=== PATIENT | male | born 1935 | race Caucasian/White ===

== ENCOUNTER 2017-01-28 16:20 | Inpatient (IN) | payer MEDICARE, BC ==
[~2017-01-28] VITALS: Ht 180.3 cm; Wt 76.7 kg
[2017-01-28 16:00] VITALS: BP 98/53; PULSE 100; RESP 19
[2017-01-28 17:01] LABS: ADD UMIC YES; UR ASCORBIC ACID 20 mg/dL (NEGATIVE); UR BILIRUBIN (Dip) NEGATIVE (NEGATIVE); UR BLOOD (Dip) 2+ mg/dL (NEGATIVE); UR CLARITY CLEAR (CLEAR); UR COLOR YELLOW (YELLOW); UR GLUCOSE (Dip) NEGATIVE (NEGATIVE); UR KETONES (Dip) NEGATIVE (NEGATIVE); UR LEUKOCYTE ESTERASE (Dip) NEGATIVE Leu/ul (NEGATIVE); UR MUCUS FEW /HPF (NONE SEEN); UR NITRITE (Dip) NEGATIVE (NEGATIVE); UR RBC 68 /HPF (0-5); UR SPECIFIC GRAVITY (Dip) 1.013 (1.003-1.030); UR TOTAL PROTEIN (Dip) NEGATIVE (NEGATIVE); UR UROBILINOGEN (Dip) 1+ mg/dL (NEGATIVE)
[2017-01-28] MEDS: DILTIAZEM 60 MG TAB GTB SCH (18:07)
[2017-01-28 18:15] VITALS: Ht 180.3 cm; Wt 76.7 kg
[2017-01-28] MEDS ORDERED: morphine 10 MG INJ SC PRN (18:30)
[2017-01-28] MEDS ORDERED: SCOPOLAMINE 1.5 MG PATCH TRANSDERM SCH (18:30)
[2017-01-28] MEDS: CARBIDOPA/LEVODOPA (25/100) TAB GTB SCH ×2 (18:55→20:19)
[2017-01-28 20:14] VITALS: BP 112/71; PULSE 91; RESP 18
[2017-01-28] MEDS: DOCUSATE SODIUM 10 MG/ML (10ML CUP) GTB SCH (20:17)
[2017-01-28] MEDS: NEUTRA-PHOS 250 MG PACKET GTB SCH (20:18)
[2017-01-28] MEDS: NYSTATIN 30 GM POWDER BTL TOP SCH (20:18)
[2017-01-28] MEDS: CHLORHEXIDINE GLUCONATE 15 ML UD CUP MT SCH (20:18)
[2017-01-28] MEDS: APIXABAN 5 MG TABLET GTB SCH (20:19)
[2017-01-28] MEDS: SENNA TAB GTB SCH (20:20)
[2017-01-28] MEDS: DOXAZOSIN 2 MG TAB GTB SCH (20:20)
[2017-01-28] MEDS: ALBUTEROL/IPRATROPIUM (NEB) 3 ML AMP HHN SCH (20:40)
[2017-01-29] MEDS: DILTIAZEM 60 MG TAB GTB SCH ×4 (00:36→18:00)
[2017-01-29] MEDS: ALBUTEROL/IPRATROPIUM (NEB) 3 ML AMP HHN SCH ×4 (02:21→20:26)
[2017-01-29 06:22] LABS: EOSINOPHILS % 0.4 % (0.0-7.0); HEMATOCRIT 30.9 % (42.0-52.0); HEMOGLOBIN 9.5 g/dl (14.0-18.0); LYMPHOCYTES # 1.4 10^3/ul (0.8-2.9); LYMPHOCYTES % 15.3 % (15.0-51.0); MEAN CORPUSCULAR HEMOGLOBIN 28.2 pg (29.0-33.0); MEAN CORPUSCULAR HGB CONC 30.7 g/dl (32.0-37.0); MEAN CORPUSCULAR VOLUME 91.7 fl (82.0-101.0); MEAN PLATELET VOLUME 10.5 fl (7.4-10.4); MONOCYTES % 10.7 % (0.0-11.0); NEUTROPHIL # 6.6 10^3/ul (1.6-7.5); NEUTROPHILS % 70.9 % (39.0-77.0); NUCLEATED RED BLOOD CELLS% 0.3 /100WBC (0.0-0.0); PLATELET COUNT 218 10^3/UL (140-415); RED BLOOD COUNT 3.37 10^6/ul (4.70-6.10); WHITE BLOOD COUNT 9.3 10^3/ul (4.8-10.8)
[2017-01-29 06:53] LABS: ALBUMIN 2.2 g/dl (3.3-4.9); ALBUMIN/GLOBULIN RATIO 1.1; BILIRUBIN,INDIRECT 0.1 mg/dl (0-1.1); BILIRUBIN,TOTAL 0.1 mg/dl (0.2-1.3); CALCIUM 7.4 mg/dl (8.4-10.2); CREATININE 0.79 mg/dl (0.61-1.24); POTASSIUM 4.3 mmol/L (3.5-5.1); TOTAL PROTEIN 4.2 g/dl (6.1-8.1)
[2017-01-29] MEDS: CARBIDOPA/LEVODOPA (25/100) TAB GTB SCH ×6 (07:09→21:00)
[2017-01-29 08:00] VITALS: BP 112/60; PULSE 68; RESP 21
[2017-01-29] MEDS: DOCUSATE SODIUM 10 MG/ML (10ML CUP) GTB SCH ×2 (09:26→21:03)
[2017-01-29] MEDS: CHLORHEXIDINE GLUCONATE 15 ML UD CUP MT SCH ×2 (09:26→21:04)
[2017-01-29] MEDS: PSYLLIUM 28% PACKET GTB SCH (09:28)
[2017-01-29] MEDS: SCOPOLAMINE 1.5 MG PATCH TRANSDERM SCH (09:28)
[2017-01-29] MEDS: NEUTRA-PHOS 250 MG PACKET GTB SCH ×2 (09:28→21:03)
[2017-01-29] MEDS: FAMOTIDINE 20 MG TAB GTB SCH (09:28)
[2017-01-29] MEDS: predniSONE 20 MG TAB GTB SCH (09:29)
[2017-01-29] MEDS: RASAGILINE MESYLATE 1 MG TAB GTB SCH (09:29)
[2017-01-29] MEDS: APIXABAN 5 MG TABLET GTB SCH ×2 (09:29→21:03)
[2017-01-29] MEDS: SENNA TAB GTB SCH ×2 (09:29→21:03)
[2017-01-29] MEDS: NYSTATIN 30 GM POWDER BTL TOP SCH ×2 (09:30→21:04)
[2017-01-29] MEDS: DIGOXIN 0.125 MG TAB GTB SCH (13:04)
[2017-01-29] MEDS ORDERED: LEVALBUTEROL (NEB) 0.63 MG/3 ML AMP HHN PRN (14:00)
--- NOTE | 2017-01-29 14:06 | CONS ---
DATE OF ADMISSION: 01/28/2017 DATE OF CONSULTATION: 01/29/2017 TYPE OF CONSULTATION: Rehabilitation post-admission physician evaluation. REHABILITATION IMPAIRMENT CATEGORY: Parkinson disease. ACTIVE COMORBIDITIES: 1. Debility secondary to perforated diverticulitis and respiratory failure. 2. Trach. 3. Dysphagia with G-tube placement. 4. Hypertension. 5. BPH. 6. Peripheral neuropathy. 7. Urinary retention. 8. Atrial fibrillation. 9. Impairments in self-care and mobility. HISTORY OF PRESENT ILLNESS: The patient is a very pleasant 81-year-old gentleman with a history of multiple medical comorbidities including Parkinson disease who was initially hospitalized in November for perforated diverticulitis. The patient underwent surgery and his hospital course was notable fo r pneumonia and respiratory failure requiring intubation and ventilatory support. The patient's hos pital course was also notable for significant dysphagia requiring PEG placement. Hospital course no table for urinary retention. The patient currently with a Cano. The patient was eventually transf erred to [facility]. The patient was noted to have with worsening of Parkinson's s ymptoms during his time off of Sinemet. Patient's overall status has improved in [place] and he has been tolerating capping of the trach. The patient has now been cleared [facility] interdisciplinary rehab care. FUNCTIONAL HISTORY: Prior to recent events, he was independent in self-care tasks and mobility. Cu rrently, the patient requires moderate assist to maximal assist for self-care activities and maximal assist for mobility tasks. I have reviewed the preadmission screen and the patient's current functional status is consistent wi th the preadmission screen. SOCIAL HISTORY: The patient lives at home with his and hopes to return there upon discharge. PAST MEDICAL HISTORY: 1. Parkinson disease. 2. Hypertension. 3. BPH. 4. Hypothyroidism. 5. Peripheral neuropathy. 6. Atrial fibrillation. CURRENT MEDICATIONS: 1. Sinemet 25/100 two tabs per G-tube at bedtime. 2. Ativan 2 mg per G-tube q.12h. p.r.n. 3. Prednisone 20 mg daily. 4. Morphine p.r.n. 5. Metamucil daily. 6. Azilect 1 mg daily. 7. Scopolamine patch q.72 h.. 8. Senna 1 tab b.i.d. 9. Neutra-Phos 250 b.i.d. 10. Albuterol nebulizer. 11. Eliquis 5 mg b.i.d. 12. Digoxin 0.125 mg daily. 13. Cardizem 60 mg q.6h. 14. Colace 100 mg b.i.d. 15. Cardura 2 mg daily. 16. Pepcid 20 mg daily. 17. Sinemet 2 tabs at 7 a.m., 10 a.m., 1300, 1600 and 1900. ALLERGIES: 1. TETRACYCLINE 2. PENICILLIN. 3. FLAGYL. PHYSICAL EXAMINATION: VITAL SIGNS: He is currently afebrile with stable vital signs. HEENT: The extraocular motions appear intact. The patient does have a capped trach in place. LUNGS: Reveal coarse breath sounds. CARDIAC: S1, S2. ABDOMEN: Soft, nontender, positive bowel sounds. G-tube in place. NEUROLOGIC: He is awake and alert. He is oriented x3. He will follow simple 1-step commands. He demonstrates antigravity strength in bilateral upper extremity and lower extremity. He does have im paired static and dynamic balance. PLAN: The patient has been admitted for comprehensive interdisciplinary acute rehab and is anticipa viraj to tolerate 3 hours of daily therapy in divided doses for at least 5/7 days a week. The treatme nt plan will include: 1. Physical therapy to focus on bed mobility, transfers, and household ambulation with the goal of having the patient reach a standby assist level. 2. Occupational therapy to focus on hygiene, grooming, dressing, bathing, and toileting activities with the goal of having the patient reach standby assist level. 3. Speech therapy for dysphagia management, in addition to full cognitive assessment with the goal of having the patient return to baseline cognition and transitioned to oral feedings. 4. Rehabilitation nursing for carryover of therapeutic interventions, with the goal of continent of bowel and bladder, and the goal of patient and family education with regard to the aforementioned i ssues. REHABILITATION BARRIER: Trach INTERVENTION FOR BARRIER: Respiratory care. ESTIMATED LENGTH OF STAY: 14 days. DISPOSITION GOAL: Home. I acknowledge that I performed a full physical examination on this patient within 24 hours of admiss ion to the rehabilitation unit. I believe the patient is a good candidate for comprehensive interdi sciplinary rehab care and is anticipated to make reasonable goals in a reasonable period of time as outlined above. Dictated By: TIANA COSTA/NTS Conf#: [id number] [facility]#: [id number]
--- NOTE | 2017-01-29 14:22 | CONS ---
Date/Time of Note Date/Time of Note DATE: 01/29/17 TIME: 13:59 Assessment/Plan Assessment/Plan Chief Complaint/Hosp Course 81-year-old male with history of vent dependent respiratory failure, who was transferred from [facility] to [facility] for pulmonary debility. 1. Pulmonary debility. -Continue with rehabilitation. -Continue with Pulmonary toileting. Follow-up with pulmonary recommendations. 2. Status post respiratory failure, requiring insertion of tracheostomy and is now capped. Stable saturation on room air. -Follow-up with pulmonary recommendation regarding tracheostomy management. 3. Dysphagia, requiring G-tube. -Continue tube feeding as tolerated. -Continue with local G-tube care. 4. History of perforated diverticulitis. -Status post explore lap with partial colectomy and colostomy placement. -Colostomy care per nursing/ostomy nurse 5. Atrial fibrillation. -On Cardizem/Dig and Eliquis for anticoagulation 6. BPH with urinary retention. -On doxazosin. As per urology, will attempt Cano removal sometimes later and if patient cannot void, plan is in and out catheterization. 7. Reported Hypothyroidism. Not on treatment. - Obtain a TSH/T4 level and treat as indicated. 8. Parkinson's disease. -Continue home medications -Supportive care 9. Peripheral neuropathy. -Continue home medications 10. Anemia, chronic versus iron deficiency. -Obtain iron panel and treat accordingly. H&H stable. 11. Hyponatremia, Asymptomatic.likely dilutional. -Free water restriction 1L/day. -Obtain urine studies. 12.Essential HTN. Stable. -Continue antihypertensives. Prophylaxis: Eliquis/Pepcid. Approximately 60 minutes was spent on this consultation. Patient was seen in collaboration with Dr. Estrada. Problems: Consultation Date/Type/Reason Admit Date/Time Jan 28, 2017 at 16:20 Hx of Present Illness This is a very unfortunate 81-year-old male with extensive past medical history of alcohol abuse, nicotine abuse, Parkinson disease, hypothyroidism, peripheral neuropathy, basal cell carcinoma of the skin, atrial fibrillation, hypertension, BPH, arthritis, leg fractures, and kyphoplasty of thoracic spine who [facility] for pulmonary debility. Apparently, he was admitted in [facility] in November for perforated diverticulitis for which he had undergone explore lap with partial colectomy with Sariah procedure. His hospitalization was complicated with respiratory failure requiring insertion of tracheostomy and G-tube placement. He was then transferred to [facility] for vent weaning . At [place], patient was successfully weaned off from the ventilator. At that time, attempt was done to decannulate trach, however it needed reinsertion and was kept capped. Patient also had urinary retention requiring urology work-up at [facility] and kept with Cano. Patient continued to have impairment in self care with pulmonary debility was accepted to [facility] for complex interdisciplinary rehabilitation. Patient currently denies chest pain, shortness of breath, nausea, vomiting, abdominal pain, headache, numbness, bleeding episodes or urinary symptoms.His labs unremarkable except for low HH 9.5/30.9 and sodium 131. VSS. A 12 point review of system was assessed and is negative other than what is mentioned in HPI. Past Medical History See HPI Past Surgical History See HPI Social History Patient had a history of alcohol abuse, nicotine abuse. He denies any illicit drug use history. Smoking Status: Former smoker Exam/Review of Systems Vital Signs Vitals Vital Signs Date Time Temp Pulse Resp B/P Pulse Ox O2 Delivery O2 Flow Rate FiO2 01/29/17 09:08 82 17 97 21 01/28/17 20:14 98.1 112/71 Room Air Intake and Output 01/28/17 01/28/17 01/29/17 15:00 23:00 07:00 Intake Total 120 ml Balance 120 ml Exam General: Elderly, chronically ill looking male, not in any acute distress . HEENT: Normocephalic, Atraumatic, No laceration or hematoma; Eyes: PEERL, Conjunctiva clear, Anicteric sclera Neck: Supple without any lymphadenopathy, nontender, no JVD, no carotid bruits, trachea midline, no thyromegaly Cardiac: S1, S2 auscultated, regular rhythm and rate, no mumurs or gallop Pulmonary: With capped tracheostomy. Mild wheezing bilateral upper lobes on expiration. Normal respiratory effort. GI: With G-tube, mild redness around the site. Soft, non tender, non- distended, no masses, no rebound tenderness or guarding. Bowel sounds active on all four quadrants Genitourinary: Deferred Extremities: No cyanosis, clubbing, or edema. Pulses [2+] bilaterally. Full ROM on all four extremities. No focal weakness appreciated. Neurologic: Alert to person, place, time, and situation. Affect appropriate, intact sensation. Skin: Clean,dry, and intact. No ecchymosis, no rashes, or lesions Results Result Diagram: 01/29/17 0611 01/29/17 0611 Results 24 hrs Laboratory Tests Test 01/28/17 16:30 01/29/17 06:11 Urine Color YELLOW Urine Clarity CLEAR Urine pH 7.0 Urine Specific Herscher 1.013 Urine Ketones NEGATIVE Urine Nitrite NEGATIVE Urine Bilirubin NEGATIVE Urine Urobilinogen 1+ H Urine Leukocyte Esterase NEGATIVE Urine Microscopic RBC 68 H Urine Microscopic WBC 6 H Urine Mucus FEW A Urine Hemoglobin 2+ H Urine Glucose NEGATIVE Urine Total Protein NEGATIVE White Blood Count 9.3 Red Blood Count 3.37 L Hemoglobin 9.5 L Hematocrit 30.9 L Mean Corpuscular Volume 91.7 Mean Corpuscular Hemoglobin 28.2 L Mean Corpuscular Hemoglobin Concent 30.7 L Red Cell Distribution Width 19.0 H Platelet Count 218 Mean Platelet Volume 10.5 H Neutrophils % 70.9 Lymphocytes % 15.3 Monocytes % 10.7 Eosinophils % 0.4 Basophils % 0.0 Nucleated Red Blood Cells % 0.3 H Neutrophils # 6.6 Lymphocytes # 1.4 Monocytes # 1.0 H Eosinophils # 0.0 Basophils # 0.0 Nucleated Red Blood Cells # 0.0 Sodium Level 131 L Potassium Level 4.3 Chloride Level 99 Carbon Dioxide Level 30 Anion Gap 6 L Blood Urea Nitrogen 33 H Creatinine 0.79 Glucose Level 102 Calcium Level 7.4 L Total Bilirubin 0.1 L Direct Bilirubin 0.00 Indirect Bilirubin 0.1 Aspartate Amino Transf (AST/SGOT) 13 L Alanine Aminotransferase (ALT/SGPT) 37 Alkaline Phosphatase 46 Total Protein 4.2 L Albumin 2.2 L Globulin 2.00 Albumin/Globulin Ratio 1.10 Medications Medications Current Medications Carbidopa/Levodopa (Sinemet (25/ 100)) 2 tab QHS GTB Last administered on 20:19; Admin Dose 2 TAB; Start 01/28/17 at 21:00 Lorazepam (Ativan) 2 mg Q12H PRN GTB ANXIETY; Start 01/28/17 at 18:00 Prednisone (Prednisone) 20 mg DAILY GTB Last administered on 01/29/17 09:29; Admin Dose 20 MG; Start 01/29/17 at 09:00 Morphine Sulfate (morphine) 2 mg Q4H PRN SC PAIN; Start 01/28/17 at 18:30 Nystatin (Nystatin Powder) 1 applic BID TOP Last administered on 01/29/17 09: 30; Admin Dose 1 APPLIC; Start 01/28/17 at 21:00 Psyllium Hydrophilic Mucilloid (Metamucil) 2 pkt DAILY GTB Last administered on 01/29/17 09:28; Admin Dose 2 PKT; Start 01/29/17 at 09:00 Rasagiline (Azilect) 1 mg DAILY GTB Last administered on 01/29/17 09:29; Admin Dose 1 MG; Start 01/29/17 at 09:00 Senna (Senokot) 1 tab BID GTB Last administered on 01/29/17 09:29; Admin Dose 1 TAB; Start 01/28/17 at 21:00 Sodium Phosphate (Neutra-Phos) 250 mg BID GTB Last administered on 01/29/17 09 :28; Admin Dose 250 MG; Start 01/28/17 at 21:00 Apixaban (Eliquis) 5 mg BID GTB Last administered on 01/29/17 09:29; Admin Dose 5 MG; Start 01/28/17 at 21:00 Chlorhexidine Gluconate (Peridex) 15 ml Q12 MT Last administered on 01/29/17 09:26; Admin Dose 15 ML; Start 01/28/17 at 21:00 Digoxin (Digoxin) 0.125 mg DAILY@13 GTB Last administered on 01/29/17 13:04; Admin Dose 0.125 MG; Start 01/29/17 at 13:00 Diltiazem HCl (Cardizem) 60 mg Q6 GTB Last administered on 01/29/17 13:04; Admin Dose 60 MG; Start 01/28/17 at 18:07 Docusate Sodium (Colace Liquid Cup) 100 mg BID GTB Last administered on 09:26; Admin Dose 100 MG; Start 01/28/17 at 21:00 Doxazosin Mesylate (Cardura) 2 mg DAILY@21 GTB Last administered on 01/28/17 20:20; Admin Dose 2 MG; Start 01/28/17 at 21:00 Famotidine (Pepcid) 20 mg DAILY GTB Last administered on 01/29/17 09:28; Admin Dose 20 MG; Start 01/29/17 at 09:00 Carbidopa/Levodopa (Sinemet (25/ 100)) 2 tab 07,10,13,16,19 GTB Last administered on 01/29/17 13:04; Admin Dose 2 TAB; Start 01/28/17 at 19:00 Scopolamine (Transderm-Scop) 1 patch Q72H TRANSDERM Last administered on 09:28; Admin Dose 1 PATCH; Start 01/29/17 at 09:00 ALEX BURR NP Jan 29, 2017 14:09
[2017-01-29] MEDS ORDERED: SOD CHLORIDE 0.9% 1,000 ML IV SCH (14:30)
--- NOTE | 2017-01-29 16:44 | CONS ---
DATE OF ADMISSION: 01/28/2017 DATE OF CONSULTATION: PRIMARY FAMILY LAW MEDIATOR: Thank you, Dr. Estrada, for this consultation. HISTORY OF PRESENT ILLNESS: This is a pleasant 81-year-old gentleman with multiple medical problems, including Parkinson's disease, complicated by recent perforated diverticulitis which resulted in hypoxemic and hypercapnic respiratory failure requiring tracheostomy and PEG tube placement. The patient was transferred to [facility] where he continued care, since that time has had tracheostomy capped. Per patient, he was decannulated at one point, however, because of respiratory distress tracheostomy was replaced. Currently he has trach capped, is comfortable at rest. No respiratory distress at present. PAST MEDICAL HISTORY: Parkinson disease, BPH, essential hypertension, hypothyroidism and peripheral neuropathy. MEDICATION: Per chart. ALLERGIES: TETRACYCLINE, AND FLAGYL. SOCIAL HISTORY: Nonsmoker. No alcohol. No history of drug use. FAMILY HISTORY: Noncontributory. REVIEW OF SYSTEMS: A 12-point review of systems negative other than that mentioned above. PHYSICAL EXAMINATION: On examination, elderly. PHYSICAL EXAMINATION: GENERAL: A well-nourished, well-developed gentleman comfortable at rest. No acute distress. VITAL SIGNS: Currently afebrile. Pulse is 80, blood pressure 112/78, O2 saturation 96 percent on room air. NECK: Trach site is clean and intact, capped. CARDIAC: S1, S2. No added sounds or murmurs. CHEST: Diminished air entry bilaterally. ABDOMEN: Soft, nontender. No guarding or rebound. EXTREMITIES: No cyanosis, clubbing, edema. NEUROLOGICALLY: Generalized weakness. LABORATORY: White count 9.3, hemoglobin 9.5, platelets of 218. BUN 33, creatinine 0.79. ABGs pending at time of this dictation. IMPRESSION: 1. Status post hypoxemic respiratory failure now with tracheostomy capped. 2. Recent perforated diverticulitis. 3. History of underlying Parkinson's disease. PLAN: 1. Continue PT, OT. 2. Continue cardiac recommendations. 3. Continue anticoagulation for atrial fibrillation. 4. Continue tracheostomy capping. Will continue to monitor and as he gets stronger will reassess for decannulation. Dictated By: Ricky Paul MD /chacha/david /Document#: [id number]
--- NOTE | 2017-01-29 17:55 | CONS ---
Date/Time of Note Date/Time of Note DATE: 01/29/17 TIME: 17:53 Assessment/Plan Assessment/Plan Additional Assessment/Plan Atrial fibrillation on A/C Preserved EF Respiratory Failure -cont CCB, digoxin as BP tolerates and titrate as needed for HR. Cont a/c if no contraindication. Consultation Date/Type/Reason Admit Date/Time Jan 28, 2017 at 16:20 Initial Consult Date Type of Consultation: cv 24 HR Interval Summary Free Text/Dictation pt seen and examined, no new CV issues as per nursing staff Exam/Review of Systems Vital Signs Vitals Vital Signs Date Time Temp Pulse Resp B/P Pulse Ox O2 Delivery O2 Flow Rate FiO2 01/29/17 14:44 86 17 97 21 01/28/17 20:14 98.1 112/71 Room Air Intake and Output 01/28/17 01/28/17 01/29/17 15:00 23:00 07:00 Intake Total 120 ml Balance 120 ml Exam sleeping, nad Head: normocephalic Neck: other (trach) Respiratory: other (course bs, no wheeze) Cardiovascular: irregular rhythm, other (s1s2) Gastrointestinal: bowel sounds, non-tender, soft Extremities: edema (trace) Results Result Diagram: 01/29/17 0611 01/29/17 0611 Results 24 hrs Laboratory Tests Test 01/29/17 06:11 01/29/17 17:00 White Blood Count 9.3 Red Blood Count 3.37 L Hemoglobin 9.5 L Hematocrit 30.9 L Mean Corpuscular Volume 91.7 Mean Corpuscular Hemoglobin 28.2 L Mean Corpuscular Hemoglobin Concent 30.7 L Red Cell Distribution Width 19.0 H Platelet Count 218 Mean Platelet Volume 10.5 H Neutrophils % 70.9 Lymphocytes % 15.3 Monocytes % 10.7 Eosinophils % 0.4 Basophils % 0.0 Nucleated Red Blood Cells % 0.3 H Neutrophils # 6.6 Lymphocytes # 1.4 Monocytes # 1.0 H Eosinophils # 0.0 Basophils # 0.0 Nucleated Red Blood Cells # 0.0 Sodium Level 131 L Potassium Level 4.3 Chloride Level 99 Carbon Dioxide Level 30 Anion Gap 6 L Blood Urea Nitrogen 33 H Creatinine 0.79 Glucose Level 102 Calcium Level 7.4 L Total Bilirubin 0.1 L Direct Bilirubin 0.00 Indirect Bilirubin 0.1 Aspartate Amino Transf (AST/SGOT) 13 L Alanine Aminotransferase (ALT/SGPT) 37 Alkaline Phosphatase 46 Total Protein 4.2 L Albumin 2.2 L Globulin 2.00 Albumin/Globulin Ratio 1.10 Urine Osmolality < 12 L Medications Medications Current Medications Carbidopa/Levodopa (Sinemet (25/ 100)) 2 tab QHS GTB Last administered on 20:19; Admin Dose 2 TAB; Start 01/28/17 at 21:00 Lorazepam (Ativan) 2 mg Q12H PRN GTB ANXIETY; Start 01/28/17 at 18:00 Prednisone (Prednisone) 20 mg DAILY GTB Last administered on 01/29/17 09:29; Admin Dose 20 MG; Start 01/29/17 at 09:00 Morphine Sulfate (morphine) 2 mg Q4H PRN SC PAIN; Start 01/28/17 at 18:30 Nystatin (Nystatin Powder) 1 applic BID TOP Last administered on 01/29/17 09: 30; Admin Dose 1 APPLIC; Start 01/28/17 at 21:00 Psyllium Hydrophilic Mucilloid (Metamucil) 2 pkt DAILY GTB Last administered on 01/29/17 09:28; Admin Dose 2 PKT; Start 01/29/17 at 09:00 Rasagiline (Azilect) 1 mg DAILY GTB Last administered on 01/29/17 09:29; Admin Dose 1 MG; Start 01/29/17 at 09:00 Senna (Senokot) 1 tab BID GTB Last administered on 01/29/17 09:29; Admin Dose 1 TAB; Start 01/28/17 at 21:00 Sodium Phosphate (Neutra-Phos) 250 mg BID GTB Last administered on 01/29/17 09 :28; Admin Dose 250 MG; Start 01/28/17 at 21:00 Apixaban (Eliquis) 5 mg BID GTB Last administered on 01/29/17 09:29; Admin Dose 5 MG; Start 01/28/17 at 21:00 Chlorhexidine Gluconate (Peridex) 15 ml Q12 MT Last administered on 01/29/17 09:26; Admin Dose 15 ML; Start 01/28/17 at 21:00 Digoxin (Digoxin) 0.125 mg DAILY@13 GTB Last administered on 01/29/17 13:04; Admin Dose 0.125 MG; Start 01/29/17 at 13:00 Diltiazem HCl (Cardizem) 60 mg Q6 GTB Last administered on 01/29/17 13:04; Admin Dose 60 MG; Start 01/28/17 at 18:07 Docusate Sodium (Colace Liquid Cup) 100 mg BID GTB Last administered on 09:26; Admin Dose 100 MG; Start 01/28/17 at 21:00 Doxazosin Mesylate (Cardura) 2 mg DAILY@21 GTB Last administered on 01/28/17 20:20; Admin Dose 2 MG; Start 01/28/17 at 21:00 Famotidine (Pepcid) 20 mg DAILY GTB Last administered on 01/29/17 09:28; Admin Dose 20 MG; Start 01/29/17 at 09:00 Carbidopa/Levodopa (Sinemet (25/ 100)) 2 tab 07,10,13,16,19 GTB Last administered on 01/29/17 13:04; Admin Dose 2 TAB; Start 01/28/17 at 19:00 Scopolamine (Transderm-Scop) 1 patch Q72H TRANSDERM Last administered on 09:28; Admin Dose 1 PATCH; Start 01/29/17 at 09:00 Holden Reeves DO Jan 29, 2017 17:55
[2017-01-29 20:00] VITALS: BP 116/74; PULSE 66; RESP 18
[2017-01-29] MEDS: LORAZEPAM 1 MG TAB GTB PRN (21:03)
[2017-01-29] MEDS: DOXAZOSIN 2 MG TAB GTB SCH (21:03)
[2017-01-29 21:59] VITALS: BP 102/69; RESP 18
[2017-01-30] VITALS (7 sets, daily range): BP systolic 85–129; BP diastolic 51–74; PULSE 86–97; RESP 18
[2017-01-30] MEDS: DILTIAZEM 60 MG TAB GTB SCH ×4 (01:01→17:31)
[2017-01-30] MEDS: ALBUTEROL/IPRATROPIUM (NEB) 3 ML AMP HHN SCH ×4 (02:00→19:35)
--- NOTE | 2017-01-30 04:56 | CONS ---
DATE OF ADMISSION: 01/28/2017 DATE OF CONSULTATION: 01/29/2017 TYPE OF CONSULTATION: Psychological. REFERRING PHYSICIAN: Tiana Velez MD CONSULTING PSYCHOLOGIST: Juan Miguel Wall, PhD REASON FOR CONSULTATION: This consultation was requested by Dr. Elver Velez in order to evaluate the cognitive and emotional functioning of this patient related to his present medical condition. HISTORY OF PRESENT ILLNESS: The patient is an 81-year-old male. The patient was initially in [facility] with a diagnosis of pulmonary debility. The patient does have Parkinson disease and numerous other medical problems. The patient is motivated to get better and does feel frustrated by all his medical problems. The patient did have a trach placed and he had very soft speech when talking during the interview. The patient is frustrated about all his medical problems, but is motivated to try to return to his previous level of functioning. The patient reports that he does have a Master's Degree in Psychology. FAMILY AND SOCIAL HISTORY: The patient reports that he lives in a house in [place] with his . The patient's house [address] [facility] [facility] [facility] and does have numerous stairs. The patient does want to return there after discharge. MEDICATIONS: The patient is currently on Ativan 2 mg q.12 hours p.r.n. SUBSTANCE USE: The patient reports that he does not smoke. The patient reports that he drinks 1 to 2 glasses of red wine per day with dinner. MENTAL STATUS EXAMINATION: APPEARANCE: The patient was seen in bed. He appears to be of average height and weight. The patient is balding and has smith hair with a dalton and mustache. The patient wears glasses and is right-handed. The patient did have a trach placed in. BEHAVIOR: The patient was cooperative during the consultation. The patient did attempt to answer all questions presented to him by the interviewer. The patient did have some difficulty in speaking, but tried to do as well as he could. He spoke very softly, but tried to make himself understood. MOOD AND AFFECT: The patient's mood appears to be somewhat depressed. Affect does appear to be anxious. PERCEPTION: The patient reports no hallucinations or delusions. The patient was alert to person, place, situation and time. MEMORY: The patient's memory is basically intact. The patient did have some slight gaps in his memory, which might relate to his Parkinson's, as well as his recent medical problems. The patient was able to say the name of the hospital as "," but did not say [facility]. He did know it was 01/2017. The patient was able to say who the governor of the [facility] is and the mayor of the [facility], but actually could not come up with the name of the ethnographer. He could do 1 serial 7 subtraction from 100, but then could not go any further. The patient was able to spell "world" backwards. Overall, given his age and illnesses, his overall cognitive functioning appears to be adequate. INTELLIGENCE: Appears to fall in the average range. INSIGHT: Fair. JUDGMENT: Fair. THOUGHT CONTENT: The patient is concerned about his present medical condition. The patient is frustrated about all his medical problems and does want to be able to return to his previous level of functioning. DISCUSSION: The patient can likely benefit from some cognitive/behavioral psychotherapy while he is on the unit. Psychotherapy would focus on his underlying level of anxiety and frustration about all his medical problems. DIAGNOSTIC IMPRESSION: F06.31, mood disorder due to multiple medical problems with depressive features. Thank you very much, Dr. Elver Velez, for referring this individual. Please do not hesitate to call if you have additional questions. Dictated By: JUAN MIGUEL WALL PHD PEDRO/BERTHA Conf#: [id number] DID#: [id number] CC: TIANA VELEZ MD;*EndCC* MTDD
[2017-01-30] MEDS: CARBIDOPA/LEVODOPA (25/100) TAB GTB SCH ×6 (06:08→20:25)
[2017-01-30 07:49] LABS: IRON 24 ug/dl (35-150)
[2017-01-30 07:59] LABS: TOTAL IRON BINDING CAPACITY 240 ug/dl (241-421)
[2017-01-30 08:07] LABS: CALCIUM 7.3 mg/dl (8.4-10.2); CHOL/HDL RATIO 2.9 RATIO; CREATININE 0.79 mg/dl (0.61-1.24); MAGNESIUM 2.2 mg/dl (1.7-2.5); POTASSIUM 4.2 mmol/L (3.5-5.1)
--- NOTE | 2017-01-30 08:09 | CONS ---
Date/Time of Note Date/Time of Note DATE: 01/30/17 TIME: 08:07 Assessment/Plan Assessment/Plan Chief Complaint/Hosp Course Atrial fibrillation on A/C Preserved EF Respiratory Failure Problems: Additional Assessment/Plan no change in current mds continue Dig and cardizem continue ac if no signs of bleeding Consultation Date/Type/Reason Admit Date/Time Jan 28, 2017 at 16:20 Initial Consult Date Type of Consultation: cv 24 HR Interval Summary Free Text/Dictation no chest pain, no sob, no palpitations Detailed Summary Respiratory: no complaints Cardiovascular: no complaints Gastrointestinal: no complaints Musculoskeletal: no complaints Skin: no complaints Neurologic: no complaints Endocrine: no complaints Lymphatic: no complaints Exam/Review of Systems Vital Signs Vitals Vital Signs Date Time Temp Pulse Resp B/P Pulse Ox O2 Delivery O2 Flow Rate FiO2 01/30/17 02:00 97.6 66 18 116/74 94 01/29/17 20:27 21 01/29/17 20:00 Room Air Intake and Output 01/29/17 01/29/17 01/30/17 15:00 23:00 07:00 Intake Total 1240 ml 1000 ml Output Total 800 ml 700 ml 800 ml Balance -800 ml 540 ml 200 ml Exam Constitutional: frail Head: atraumatic, normocephalic ENMT: nl external ears & nose Neck: supple Respiratory: clear to auscultation Cardiovascular: irregular rhythm Gastrointestinal: soft Musculoskeletal: nl extremities to inspection Extremities: normal pulses Results Result Diagram: 01/29/17 0611 01/29/17 0611 Results 24 hrs Laboratory Tests Test 01/29/17 17:00 01/30/17 06:33 Urine Osmolality < 12 L Urine Random Sodium Iron Level 24 L Total Iron Binding Capacity 240 L Percent Iron Saturation 10 L Medications Medications Current Medications Carbidopa/Levodopa (Sinemet (25/ 100)) 2 tab QHS GTB Last administered on 20:19; Admin Dose 2 TAB; Start 01/28/17 at 21:00 Lorazepam (Ativan) 2 mg Q12H PRN GTB ANXIETY Last administered on 01/29/17 21: 03; Admin Dose 2 MG; Start 01/28/17 at 18:00 Prednisone (Prednisone) 20 mg DAILY GTB Last administered on 01/29/17 09:29; Admin Dose 20 MG; Start 01/29/17 at 09:00 Morphine Sulfate (morphine) 2 mg Q4H PRN SC PAIN; Start 01/28/17 at 18:30 Nystatin (Nystatin Powder) 1 applic BID TOP Last administered on 01/29/17 21: 04; Admin Dose 1 APPLIC; Start 01/28/17 at 21:00 Psyllium Hydrophilic Mucilloid (Metamucil) 2 pkt DAILY GTB Last administered on 01/29/17 09:28; Admin Dose 2 PKT; Start 01/29/17 at 09:00 Rasagiline (Azilect) 1 mg DAILY GTB Last administered on 01/29/17 09:29; Admin Dose 1 MG; Start 01/29/17 at 09:00 Senna (Senokot) 1 tab BID GTB Last administered on 01/29/17 21:03; Admin Dose 1 TAB; Start 01/28/17 at 21:00 Sodium Phosphate (Neutra-Phos) 250 mg BID GTB Last administered on 01/29/17 21 :03; Admin Dose 250 MG; Start 01/28/17 at 21:00 Apixaban (Eliquis) 5 mg BID GTB Last administered on 01/29/17 21:03; Admin Dose 5 MG; Start 01/28/17 at 21:00 Chlorhexidine Gluconate (Peridex) 15 ml Q12 MT Last administered on 01/29/17 21:04; Admin Dose 15 ML; Start 01/28/17 at 21:00 Digoxin (Digoxin) 0.125 mg DAILY@13 GTB Last administered on 01/29/17 13:04; Admin Dose 0.125 MG; Start 01/29/17 at 13:00 Diltiazem HCl (Cardizem) 60 mg Q6 GTB Last administered on 01/30/17 06:06; Admin Dose 60 MG; Start 01/28/17 at 18:07 Docusate Sodium (Colace Liquid Cup) 100 mg BID GTB Last administered on 21:03; Admin Dose 100 MG; Start 01/28/17 at 21:00 Doxazosin Mesylate (Cardura) 2 mg DAILY@21 GTB Last administered on 01/29/17 21:03; Admin Dose 2 MG; Start 01/28/17 at 21:00 Famotidine (Pepcid) 20 mg DAILY GTB Last administered on 01/29/17 09:28; Admin Dose 20 MG; Start 01/29/17 at 09:00 Carbidopa/Levodopa (Sinemet (25/ 100)) 2 tab 07,10,13,16,19 GTB Last administered on 01/30/17 06:08; Admin Dose 2 TAB; Start 01/28/17 at 19:00 Scopolamine (Transderm-Scop) 1 patch Q72H TRANSDERM Last administered on 09:28; Admin Dose 1 PATCH; Start 01/29/17 at 09:00 ZACK JUNG MD Jan 30, 2017 08:09
--- NOTE | 2017-01-30 08:21 | PN ---
Date/Time of Note Date/Time of Note DATE: 01/30/17 TIME: 08:18 Assessment/Plan VTE Prophylaxis VTE Prophylaxis Intervention: other (Eliquis) Lines/Catheters IV Catheter Type (from [facility]): Peripheral IV Urinary Cath still in place: Yes Reason Cath still needed: urinary retention Assessment/Plan Chief Complaint/Hosp Course 81-year-old male with history of vent dependent respiratory failure, who was transferred from [facility] to [facility] for pulmonary debility. 1. Pulmonary debility. -Continue with rehabilitation. -Continue with Pulmonary toileting. Follow-up with pulmonary recommendations. 2. Status post respiratory failure, requiring insertion of tracheostomy and is now capped. Stable saturation on room air. -Pulmonary standpoint,Continue tracheostomy capping and will reassess for decannulation. 3. Dysphagia, requiring G-tube. -Continue tube feeding as tolerated-speech therapy following for video swallow eval. -Continue with local G-tube care. 4. History of perforated diverticulitis. -Status post explore lap with partial colectomy and colostomy placement. -Colostomy care per nursing/ostomy nurse 5. Atrial fibrillation. -On Cardizem/Dig and Eliquis for anticoagulation 6.Essential HTN, now with borderline hypotension. -f/u cards recs on BP management and parameters for holding Cardizem. 7. BPH with urinary retention. -On doxazosin. As per urology, will attempt Cano removal sometimes later and if patient cannot void, plan is in and out catheterization. 8. Reported Hypothyroidism. Not on treatment. - Obtain a TSH/T4 level and treat as indicated. 9. Parkinson's disease. -Continue home medications -Supportive care 10. Peripheral neuropathy. -Continue home medications 11. Iron deficiency Anemia. -IV ironx3 doses followed by oral replacement.H&H stable. 12. Hyponatremia, likely dilutional.Improving.No neurological deficit. -Free water restriction 1L/day. -F/u osmolalities, f/u labs Prophylaxis: Eliquis/Pepcid. Patient was seen in collaboration with Dr. Estrada. Problems: Subjective 24 Hr Interval Summary Free Text/Dictation Patient had episode of borderline hypotension with SBP high 80's. asymptomatic. Exam/Review of Systems Vital Signs Vitals Vital Signs Date Time Temp Pulse Resp B/P Pulse Ox O2 Delivery O2 Flow Rate FiO2 01/30/17 02:00 97.6 66 18 116/74 94 01/29/17 20:27 21 01/29/17 20:00 Room Air Intake and Output 01/29/17 01/29/17 01/30/17 15:00 23:00 07:00 Intake Total 1240 ml 1000 ml Output Total 800 ml 700 ml 800 ml Balance -800 ml 540 ml 200 ml Exam General: Elderly, chronically ill looking male, not in any acute distress . HEENT: Normocephalic, Atraumatic, No laceration or hematoma; Eyes: PEERL, Conjunctiva clear, Anicteric sclera Neck: Supple without any lymphadenopathy, nontender, no JVD, no carotid bruits, trachea midline, no thyromegaly Cardiac: S1, S2 auscultated, regular rhythm and rate, no mumurs or gallop Pulmonary: With capped tracheostomy. Mild wheezing bilateral upper lobes on expiration. Normal respiratory effort. GI: With G-tube, mild redness around the site. Soft, non tender, non- distended, no masses, no rebound tenderness or guarding. Bowel sounds active on all four quadrants Genitourinary: Deferred Extremities: No cyanosis, clubbing, or edema. Pulses [2+] bilaterally. Full ROM on all four extremities. No focal weakness appreciated. Neurologic: Alert to person, place, time, and situation. Affect appropriate, intact sensation. Skin: Clean,dry, and intact. No ecchymosis, no rashes, or lesions Results Result Diagram: 01/29/17 0611 01/30/17 0633 Results 24 hrs Laboratory Tests Test 01/29/17 17:00 01/30/17 06:33 Urine Osmolality < 12 L Urine Random Sodium Sodium Level 133 L Potassium Level 4.2 Chloride Level 102 Carbon Dioxide Level 32 H Anion Gap 3 L Blood Urea Nitrogen 28 H Creatinine 0.79 Glucose Level 88 Calcium Level 7.3 L Magnesium Level 2.2 Iron Level 24 L Total Iron Binding Capacity 240 L Percent Iron Saturation 10 L Triglycerides Level 172 H Cholesterol Level 91 L LDL Cholesterol, Calculated 26 HDL Cholesterol 31 Cholesterol/HDL Ratio 2.9 Thyroid Stimulating Hormone (TSH) Pending Free Thyroxine 1.57 Medications Medications Current Medications Carbidopa/Levodopa (Sinemet (25/ 100)) 2 tab QHS GTB Last administered on t 20:19; Admin Dose 2 TAB; Start 01/28/17 at 21:00 Lorazepam (Ativan) 2 mg Q12H PRN GTB ANXIETY Last administered on 01/29/17 21: 03; Admin Dose 2 MG; Start 01/28/17 at 18:00 Prednisone (Prednisone) 20 mg DAILY GTB Last administered on 01/29/17 09:29; Admin Dose 20 MG; Start 01/29/17 at 09:00 Morphine Sulfate (morphine) 2 mg Q4H PRN SC PAIN; Start 01/28/17 at 18:30 Nystatin (Nystatin Powder) 1 applic BID TOP Last administered on 01/29/17 21: 04; Admin Dose 1 APPLIC; Start 01/28/17 at 21:00 Psyllium Hydrophilic Mucilloid (Metamucil) 2 pkt DAILY GTB Last administered on 01/29/17 09:28; Admin Dose 2 PKT; Start 01/29/17 at 09:00 Rasagiline (Azilect) 1 mg DAILY GTB Last administered on 01/29/17 09:29; Admin Dose 1 MG; Start 01/29/17 at 09:00 Senna (Senokot) 1 tab BID GTB Last administered on 01/29/17 21:03; Admin Dose 1 TAB; Start 01/28/17 at 21:00 Sodium Phosphate (Neutra-Phos) 250 mg BID GTB Last administered on 01/29/17 21 :03; Admin Dose 250 MG; Start 01/28/17 at 21:00 Apixaban (Eliquis) 5 mg BID GTB Last administered on 01/29/17 21:03; Admin Dose 5 MG; Start 01/28/17 at 21:00 Chlorhexidine Gluconate (Peridex) 15 ml Q12 MT Last administered on 01/29/17 21:04; Admin Dose 15 ML; Start 01/28/17 at 21:00 Digoxin (Digoxin) 0.125 mg DAILY@13 GTB Last administered on 01/29/17 13:04; Admin Dose 0.125 MG; Start 01/29/17 at 13:00 Diltiazem HCl (Cardizem) 60 mg Q6 GTB Last administered on 01/30/17 06:06; Admin Dose 60 MG; Start 01/28/17 at 18:07 Docusate Sodium (Colace Liquid Cup) 100 mg BID GTB Last administered on 21:03; Admin Dose 100 MG; Start 01/28/17 at 21:00 Doxazosin Mesylate (Cardura) 2 mg DAILY@21 GTB Last administered on 01/29/17 21:03; Admin Dose 2 MG; Start 01/28/17 at 21:00 Famotidine (Pepcid) 20 mg DAILY GTB Last administered on 01/29/17 09:28; Admin Dose 20 MG; Start 01/29/17 at 09:00 Carbidopa/Levodopa (Sinemet (25/ 100)) 2 tab 07,10,13,16,19 GTB Last administered on 01/30/17 06:08; Admin Dose 2 TAB; Start 01/28/17 at 19:00 Scopolamine (Transderm-Scop) 1 patch Q72H TRANSDERM Last administered on 09:28; Admin Dose 1 PATCH; Start 01/29/17 at 09:00 ALEX BURR NP Jan 30, 2017 08:21
[2017-01-30 08:24] LABS: THYROID STIMULATING HORMONE 11.1 MIU/L (0.465-4.680)
[2017-01-30] MEDS: APIXABAN 5 MG TABLET GTB SCH ×2 (09:48→20:25)
[2017-01-30] MEDS: SENNA TAB GTB SCH ×2 (09:48→20:25)
[2017-01-30] MEDS: predniSONE 20 MG TAB GTB SCH (09:48)
[2017-01-30] MEDS: DOCUSATE SODIUM 10 MG/ML (10ML CUP) GTB SCH ×2 (09:48→20:25)
[2017-01-30] MEDS: FAMOTIDINE 20 MG TAB GTB SCH (09:48)
[2017-01-30] MEDS: RASAGILINE MESYLATE 1 MG TAB GTB SCH (09:48)
[2017-01-30] MEDS: NEUTRA-PHOS 250 MG PACKET GTB SCH ×2 (09:48→20:25)
[2017-01-30] MEDS: CHLORHEXIDINE GLUCONATE 15 ML UD CUP MT SCH ×2 (09:49→20:27)
[2017-01-30] MEDS: PSYLLIUM 28% PACKET GTB SCH (09:49)
[2017-01-30] MEDS: NYSTATIN 30 GM POWDER BTL TOP SCH ×2 (09:49→20:26)
[2017-01-30] MEDS: SOD FERRIC GLUC COMPLX 125 MG in SOD CHLORIDE 0.9% 100 ML IVPB SCH (11:49)
--- NOTE | 2017-01-30 12:21 | CONS ---
Date/Time of Note Date/Time of Note DATE: 01/30/17 TIME: 12:19 Consult Date/Type/Reason Admit Date/Time Jan 28, 2017 at 16:20 Initial Consult Date Type of Consultation: cv Subjective RN reports pt hypotensive this am, better currently Objective pulm-cta max assist Vital Signs Date Time Temp Pulse Resp B/P Pulse Ox O2 Delivery O2 Flow Rate FiO2 01/30/17 09:44 80 17 97 21 01/30/17 08:45 98.0 99/51 Room Air Intake and Output 01/29/17 01/29/17 01/30/17 15:00 23:00 07:00 Intake Total 1240 ml 1000 ml Output Total 800 ml 700 ml 800 ml Balance -800 ml 540 ml 200 ml Results/Medications Result Diagram: 01/29/17 0611 01/30/17 0633 Results 24 hrs Laboratory Tests Test 01/29/17 17:00 01/30/17 06:33 Urine Osmolality < 12 L Urine Random Sodium Sodium Level 133 L Potassium Level 4.2 Chloride Level 102 Carbon Dioxide Level 32 H Anion Gap 3 L Blood Urea Nitrogen 28 H Creatinine 0.79 Glucose Level 88 Hemoglobin A1c 5.1 Osmolality 289 Calcium Level 7.3 L Magnesium Level 2.2 Iron Level 24 L Total Iron Binding Capacity 240 L Percent Iron Saturation 10 L Triglycerides Level 172 H Cholesterol Level 91 L LDL Cholesterol, Calculated 26 HDL Cholesterol 31 Cholesterol/HDL Ratio 2.9 Thyroid Stimulating Hormone (TSH) 11.100 H Free Thyroxine 1.57 Medications Current Medications Carbidopa/Levodopa (Sinemet (25/ 100)) 2 tab QHS GTB Last administered on 20:19; Admin Dose 2 TAB; Start 01/28/17 at 21:00 Lorazepam (Ativan) 2 mg Q12H PRN GTB ANXIETY Last administered on 01/29/17 21: 03; Admin Dose 2 MG; Start 01/28/17 at 18:00 Prednisone (Prednisone) 20 mg DAILY GTB Last administered on 01/30/17 09:48; Admin Dose 20 MG; Start 01/29/17 at 09:00 Morphine Sulfate (morphine) 2 mg Q4H PRN SC PAIN; Start 01/28/17 at 18:30 Nystatin (Nystatin Powder) 1 applic BID TOP Last administered on 01/30/17 09: 49; Admin Dose 1 APPLIC; Start 01/28/17 at 21:00 Psyllium Hydrophilic Mucilloid (Metamucil) 2 pkt DAILY GTB Last administered on 01/30/17 09:49; Admin Dose 2 PKT; Start 01/29/17 at 09:00 Rasagiline (Azilect) 1 mg DAILY GTB Last administered on 01/30/17 09:48; Admin Dose 1 MG; Start 01/29/17 at 09:00 Senna (Senokot) 1 tab BID GTB Last administered on 01/30/17 09:48; Admin Dose 1 TAB; Start 01/28/17 at 21:00 Sodium Phosphate (Neutra-Phos) 250 mg BID GTB Last administered on 01/30/17 09 :48; Admin Dose 250 MG; Start 01/28/17 at 21:00 Apixaban (Eliquis) 5 mg BID GTB Last administered on 01/30/17 09:48; Admin Dose 5 MG; Start 01/28/17 at 21:00 Chlorhexidine Gluconate (Peridex) 15 ml Q12 MT Last administered on 01/30/17 09:49; Admin Dose 15 ML; Start 01/28/17 at 21:00 Digoxin (Digoxin) 0.125 mg DAILY@13 GTB Last administered on 01/29/17 13:04; Admin Dose 0.125 MG; Start 01/29/17 at 13:00 Diltiazem HCl (Cardizem) 60 mg Q6 GTB Last administered on 01/30/17 06:06; Admin Dose 60 MG; Start 01/28/17 at 18:07 Docusate Sodium (Colace Liquid Cup) 100 mg BID GTB Last administered on 09:48; Admin Dose 100 MG; Start 01/28/17 at 21:00 Doxazosin Mesylate (Cardura) 2 mg DAILY@21 GTB Last administered on 01/29/17 21:03; Admin Dose 2 MG; Start 01/28/17 at 21:00 Famotidine (Pepcid) 20 mg DAILY GTB Last administered on 01/30/17 09:48; Admin Dose 20 MG; Start 01/29/17 at 09:00 Carbidopa/Levodopa (Sinemet (25/ 100)) 2 tab 07,10,13,16,19 GTB Last administered on 01/30/17 09:53; Admin Dose 2 TAB; Start 01/28/17 at 19:00 Scopolamine 1 patch 1 patch Q72H TRANSDERM Last administered on 01/29/17 09:28 ; Admin Dose 1 PATCH; Start 01/29/17 at 09:00 Ferric Sodium Gluconate Complex/ Sodium Chloride (Ferrlecit/NS) 110 ml @ 100 mls/hr Q24H IVPB Last administered on 01/30/17 11:49; Admin Dose 100 MLS/HR; Start 01/30/17 at 11:00; Stop 02/01/17 at 12:05 Ferrous Sulfate (Feosol Liquid Cup) 300 mg BID GTB ; Start 02/02/17 at 09:00 Assessment/Plan Additional Assessment/Plan Rehab- Parkinson disease; Debility secondary to perforated diverticulitis and respiratory failure. Increase activities as tolerated Trach- f/b pulm. Dysphagia with G-tube placement- d/w speech therapy. Possible video soon Hypertension. BPH. Peripheral neuropathy. Urinary retention. Atrial fibrillation. TIANA SCHAFER MD Jan 30, 2017 12:21
[2017-01-30] MEDS: DIGOXIN 0.125 MG TAB GTB SCH (14:54)
[2017-01-30] MEDS: DOXAZOSIN 2 MG TAB GTB SCH (20:27)
[2017-01-31] MEDS: ALBUTEROL/IPRATROPIUM (NEB) 3 ML AMP HHN SCH ×4 (01:00→19:59)
[2017-01-31] MEDS: DILTIAZEM 60 MG TAB GTB SCH ×4 (01:03→18:00)
[2017-01-31 02:00] VITALS: BP 125/70; RESP 18
[2017-01-31] MEDS: CARBIDOPA/LEVODOPA (25/100) TAB GTB SCH ×6 (06:27→20:37)
[2017-01-31 07:30] VITALS: BP_SYST 83; BP_SYST 99; BP_DIAS 52; BP_DIAS 55; PULSE 99; RESP 20
--- NOTE | 2017-01-31 08:30 | CONS ---
Date/Time of Note Date/Time of Note DATE: 01/31/17 TIME: 08:29 Assessment/Plan Assessment/Plan Chief Complaint/Hosp Course Atrial fibrillation on A/C Preserved EF Respiratory Failure Problems: Additional Assessment/Plan hypotension resolved, holding parameters for meds instituted. Consultation Date/Type/Reason Admit Date/Time Jan 28, 2017 at 16:20 Type of Consultation: cv 24 HR Interval Summary Free Text/Dictation no chest pain, no sob, no palpitations, yesterday hypotension without symptoms Detailed Summary Respiratory: no complaints Cardiovascular: no complaints Gastrointestinal: no complaints Musculoskeletal: no complaints Skin: no complaints Neurologic: no complaints Endocrine: no complaints Exam/Review of Systems Vital Signs Vitals Vital Signs Date Time Temp Pulse Resp B/P Pulse Ox O2 Delivery O2 Flow Rate FiO2 01/31/17 07:30 97.9 99 20 83/52 98 01/31/17 01:00 Nasal Cannula 2.0 28 Intake and Output 01/30/17 01/30/17 01/31/17 15:00 23:00 07:00 Intake Total 110 ml 1440 ml 700 ml Output Total 400 ml 700 ml Balance 110 ml 1040 ml 0 ml Exam Constitutional: frail Head: atraumatic, normocephalic Neck: supple Respiratory: clear to auscultation Cardiovascular: regular rate and rhythm Gastrointestinal: soft Musculoskeletal: nl extremities to inspection Extremities: normal pulses Results Result Diagram: 01/29/17 0611 01/30/17 0633 Medications Medications Current Medications Carbidopa/Levodopa (Sinemet (25/ 100)) 2 tab QHS GTB Last administered on 20:25; Admin Dose 2 TAB; Start 01/28/17 at 21:00 Lorazepam (Ativan) 2 mg Q12H PRN GTB ANXIETY Last administered on 01/29/17 21: 03; Admin Dose 2 MG; Start 01/28/17 at 18:00 Prednisone (Prednisone) 20 mg DAILY GTB Last administered on 01/30/17 09:48; Admin Dose 20 MG; Start 01/29/17 at 09:00 Morphine Sulfate (morphine) 2 mg Q4H PRN SC PAIN; Start 01/28/17 at 18:30 Nystatin (Nystatin Powder) 1 applic BID TOP Last administered on 01/30/17 20: 26; Admin Dose 1 APPLIC; Start 01/28/17 at 21:00 Psyllium Hydrophilic Mucilloid (Metamucil) 2 pkt DAILY GTB Last administered on 01/30/17 09:49; Admin Dose 2 PKT; Start 01/29/17 at 09:00 Rasagiline (Azilect) 1 mg DAILY GTB Last administered on 01/30/17 09:48; Admin Dose 1 MG; Start 01/29/17 at 09:00 Senna (Senokot) 1 tab BID GTB Last administered on 01/30/17 20:25; Admin Dose 1 TAB; Start 01/28/17 at 21:00 Sodium Phosphate (Neutra-Phos) 250 mg BID GTB Last administered on 01/30/17 20 :25; Admin Dose 250 MG; Start 01/28/17 at 21:00 Apixaban (Eliquis) 5 mg BID GTB Last administered on 01/30/17 20:25; Admin Dose 5 MG; Start 01/28/17 at 21:00 Chlorhexidine Gluconate (Peridex) 15 ml Q12 MT Last administered on 01/30/17 20:27; Admin Dose 15 ML; Start 01/28/17 at 21:00 Digoxin (Digoxin) 0.125 mg DAILY@13 GTB Last administered on 01/30/17 14:54; Admin Dose 0.125 MG; Start 01/29/17 at 13:00 Diltiazem HCl (Cardizem) 60 mg Q6 GTB Last administered on 01/31/17 06:27; Admin Dose 60 MG; Start 01/28/17 at 18:07 Docusate Sodium (Colace Liquid Cup) 100 mg BID GTB Last administered on 20:25; Admin Dose 100 MG; Start 01/28/17 at 21:00 Doxazosin Mesylate (Cardura) 2 mg DAILY@21 GTB Last administered on 01/30/17 20:27; Admin Dose 2 MG; Start 01/28/17 at 21:00 Famotidine (Pepcid) 20 mg DAILY GTB Last administered on 01/30/17 09:48; Admin Dose 20 MG; Start 01/29/17 at 09:00 Carbidopa/Levodopa (Sinemet (25/ 100)) 2 tab 07,10,13,16,19 GTB Last administered on 01/31/17 06:27; Admin Dose 2 TAB; Start 01/28/17 at 19:00 Scopolamine 1 patch 1 patch Q72H TRANSDERM Last administered on 01/29/17 09:28 ; Admin Dose 1 PATCH; Start 01/29/17 at 09:00 Ferric Sodium Gluconate Complex/ Sodium Chloride (Ferrlecit/NS) 110 ml @ 100 mls/hr Q24H IVPB Last administered on 01/30/17 11:49; Admin Dose 100 MLS/HR; Start 01/30/17 at 11:00; Stop 02/01/17 at 12:05 Ferrous Sulfate (Feosol Liquid Cup) 300 mg BID GTB ; Start 02/02/17 at 09:00 ZACK JUNG MD Jan 31, 2017 08:30
[2017-01-31] MEDS: DOCUSATE SODIUM 10 MG/ML (10ML CUP) GTB SCH ×2 (09:02→20:35)
[2017-01-31] MEDS: NEUTRA-PHOS 250 MG PACKET GTB SCH ×2 (09:03→20:37)
[2017-01-31] MEDS: predniSONE 20 MG TAB GTB SCH (09:03)
[2017-01-31] MEDS: FAMOTIDINE 20 MG TAB GTB SCH (09:03)
[2017-01-31] MEDS: PSYLLIUM 28% PACKET GTB SCH (09:03)
[2017-01-31] MEDS: RASAGILINE MESYLATE 1 MG TAB GTB SCH (09:03)
[2017-01-31] MEDS: APIXABAN 5 MG TABLET GTB SCH ×2 (09:03→20:37)
[2017-01-31] MEDS: SENNA TAB GTB SCH ×2 (09:03→20:37)
[2017-01-31] MEDS: CHLORHEXIDINE GLUCONATE 15 ML UD CUP MT SCH ×2 (09:28→20:39)
[2017-01-31] MEDS: NYSTATIN 30 GM POWDER BTL TOP SCH ×2 (09:28→20:40)
--- NOTE | 2017-01-31 10:26 | CONS ---
Date/Time of Note Date/Time of Note DATE: 01/31/17 TIME: 10:24 Consult Date/Type/Reason Admit Date/Time Jan 28, 2017 at 16:20 Type of Consultation: cv Subjective Increased secretions today Objective pulm-coarse bs abd-soft Vital Signs Date Time Temp Pulse Resp B/P Pulse Ox O2 Delivery O2 Flow Rate FiO2 01/31/17 08:58 104 20 98 Aerosol Mask 2.0 Nasal Cannula 01/31/17 07:30 97.9 83/52 01/31/17 01:00 28 Intake and Output 01/30/17 01/30/17 01/31/17 15:00 23:00 07:00 Intake Total 110 ml 1440 ml 700 ml Output Total 400 ml 700 ml Balance 110 ml 1040 ml 0 ml Results/Medications Result Diagram: 01/29/17 0611 01/30/17 0633 Medications Current Medications Carbidopa/Levodopa (Sinemet (25/ 100)) 2 tab QHS GTB Last administered on 20:25; Admin Dose 2 TAB; Start 01/28/17 at 21:00 Lorazepam (Ativan) 2 mg Q12H PRN GTB ANXIETY Last administered on 01/29/17 21: 03; Admin Dose 2 MG; Start 01/28/17 at 18:00 Prednisone (Prednisone) 20 mg DAILY GTB Last administered on 01/31/17 09:03; Admin Dose 20 MG; Start 01/29/17 at 09:00 Morphine Sulfate (morphine) 2 mg Q4H PRN SC PAIN; Start 01/28/17 at 18:30 Nystatin (Nystatin Powder) 1 applic BID TOP Last administered on 01/31/17 09: 28; Admin Dose 1 APPLIC; Start 01/28/17 at 21:00 Psyllium Hydrophilic Mucilloid (Metamucil) 2 pkt DAILY GTB Last administered on 01/31/17 09:03; Admin Dose 2 PKT; Start 01/29/17 at 09:00 Rasagiline (Azilect) 1 mg DAILY GTB Last administered on 01/31/17 09:03; Admin Dose 1 MG; Start 01/29/17 at 09:00 Senna (Senokot) 1 tab BID GTB Last administered on 01/31/17 09:03; Admin Dose 1 TAB; Start 01/28/17 at 21:00 Sodium Phosphate (Neutra-Phos) 250 mg BID GTB Last administered on 01/31/17 09 :03; Admin Dose 250 MG; Start 01/28/17 at 21:00 Apixaban (Eliquis) 5 mg BID GTB Last administered on 01/31/17 09:03; Admin Dose 5 MG; Start 01/28/17 at 21:00 Chlorhexidine Gluconate (Peridex) 15 ml Q12 MT Last administered on 01/31/17 09:28; Admin Dose 15 ML; Start 01/28/17 at 21:00 Digoxin (Digoxin) 0.125 mg DAILY@13 GTB Last administered on 01/30/17 14:54; Admin Dose 0.125 MG; Start 01/29/17 at 13:00 Diltiazem HCl (Cardizem) 60 mg Q6 GTB Last administered on 01/31/17 06:27; Admin Dose 60 MG; Start 01/28/17 at 18:07 Docusate Sodium (Colace Liquid Cup) 100 mg BID GTB Last administered on 09:02; Admin Dose 100 MG; Start 01/28/17 at 21:00 Doxazosin Mesylate (Cardura) 2 mg DAILY@21 GTB Last administered on 01/30/17 20:27; Admin Dose 2 MG; Start 01/28/17 at 21:00 Famotidine (Pepcid) 20 mg DAILY GTB Last administered on 01/31/17 09:03; Admin Dose 20 MG; Start 01/29/17 at 09:00 Carbidopa/Levodopa (Sinemet (25/ 100)) 2 tab 07,10,13,16,19 GTB Last administered on 01/31/17 06:27; Admin Dose 2 TAB; Start 01/28/17 at 19:00 Scopolamine 1 patch 1 patch Q72H TRANSDERM Last administered on 01/29/17 09:28 ; Admin Dose 1 PATCH; Start 01/29/17 at 09:00 Ferric Sodium Gluconate Complex/ Sodium Chloride (Ferrlecit/NS) 110 ml @ 100 mls/hr Q24H IVPB Last administered on 01/30/17 11:49; Admin Dose 100 MLS/HR; Start 01/30/17 at 11:00; Stop 02/01/17 at 12:05 Ferrous Sulfate (Feosol Liquid Cup) 300 mg BID GTB ; Start 02/02/17 at 09:00 Assessment/Plan Additional Assessment/Plan Rehab- Parkinson disease; Debility secondary to perforated diverticulitis and respiratory failure. Activities as tolerated Trach- f/b pulm. Dysphagia with G-tube placement- d/w speech therapy. Possible video soon Hypertension. BPH. Peripheral neuropathy. Urinary retention. Atrial fibrillation. TIANA SCHAFER MD Jan 31, 2017 10:26
[2017-01-31] MEDS: SOD FERRIC GLUC COMPLX 125 MG in SOD CHLORIDE 0.9% 100 ML IVPB SCH (12:16)
[2017-01-31] MEDS: ACETYLCYSTEINE 20% 4 ML VIAL NEB SCH ×2 (13:13→19:59)
[2017-01-31] MEDS: DIGOXIN 0.125 MG TAB GTB SCH (13:23)
[2017-01-31 14:00] VITALS: BP 84/57; RESP 20
--- NOTE | 2017-01-31 16:11 | CONS ---
Date/Time of Note Date/Time of Note DATE: 01/31/17 TIME: 16:09 Assessment/Plan Assessment/Plan Additional Assessment/Plan 1. Pulmonary debility. -Continue with rehabilitation. -Continue with Pulmonary toileting. Follow-up with pulmonary recommendations. 2. Status post respiratory failure, requiring insertion of tracheostomy and is now capped. Stable saturation on room air. -Pulmonary standpoint,Continue tracheostomy capping and will reassess for decannulation. 3. Dysphagia, requiring G-tube. -Continue tube feeding as tolerated-speech therapy following for video swallow eval. -Continue with local G-tube care. 4. History of perforated diverticulitis. -Status post explore lap with partial colectomy and colostomy placement. -Colostomy care per nursing/ostomy nurse 5. Atrial fibrillation. -On Cardizem/Dig and Eliquis for anticoagulation 6.Essential HTN, now with borderline hypotension. -f/u cards recs on BP management and parameters for holding Cardizem. 7. BPH with urinary retention. -On doxazosin. As per urology, will attempt Cano removal sometimes later and if patient cannot void, plan is in and out catheterization. 8. Reported Hypothyroidism. Not on treatment. - Obtain a TSH/T4 level and treat as indicated. 9. Parkinson's disease. -Continue home medications -Supportive care 10. Peripheral neuropathy. -Continue home medications 11. Iron deficiency Anemia. -IV ironx3 doses followed by oral replacement.H&H stable. 12. Hyponatremia, likely dilutional.Improving.No neurological deficit. -Free water restriction 1L/day. -F/u osmolalities, f/u labs Prophylaxis: Eliquis/Pepcid. Consultation Date/Type/Reason Admit Date/Time Jan 28, 2017 at 16:20 Initial Consult Date Type of Consultation: INTERNAL MEDICINE Exam/Review of Systems Vital Signs Vitals Vital Signs Date Time Temp Pulse Resp B/P Pulse Ox O2 Delivery O2 Flow Rate FiO2 01/31/17 14:00 97.6 103 20 84/57 98 01/31/17 13:18 Aerosol 28 01/31/17 10:20 5.0 Intake and Output 01/30/17 01/30/17 01/31/17 15:00 23:00 07:00 Intake Total 110 ml 1440 ml 700 ml Output Total 400 ml 700 ml Balance 110 ml 1040 ml 0 ml Exam General: chronically ill, no acute distress HEENT: ANNALISE, EOMI Cardiac: S1, S2 RRR, no murmur Pulmonary: With capped tracheostomy. Mild wheezing bilateral upper lobes on expiration. Normal respiratory effort. Extremities: No cyanosis, clubbing, or edema. Pulses [2+] bilaterally Neurologic: A & O x 3, no focal deficits Results Result Diagram: 01/29/17 0611 01/30/17 0633 Medications Medications Current Medications Carbidopa/Levodopa (Sinemet (25/ 100)) 2 tab QHS GTB Last administered on 20:25; Admin Dose 2 TAB; Start 01/28/17 at 21:00 Lorazepam (Ativan) 2 mg Q12H PRN GTB ANXIETY Last administered on 01/29/17 21: 03; Admin Dose 2 MG; Start 01/28/17 at 18:00 Prednisone (Prednisone) 20 mg DAILY GTB Last administered on 01/31/17 09:03; Admin Dose 20 MG; Start 01/29/17 at 09:00 Morphine Sulfate (morphine) 2 mg Q4H PRN SC PAIN; Start 01/28/17 at 18:30 Nystatin (Nystatin Powder) 1 applic BID TOP Last administered on 01/31/17 09: 28; Admin Dose 1 APPLIC; Start 01/28/17 at 21:00 Psyllium Hydrophilic Mucilloid (Metamucil) 2 pkt DAILY GTB Last administered on 01/31/17 09:03; Admin Dose 2 PKT; Start 01/29/17 at 09:00 Rasagiline (Azilect) 1 mg DAILY GTB Last administered on 01/31/17 09:03; Admin Dose 1 MG; Start 01/29/17 at 09:00 Senna (Senokot) 1 tab BID GTB Last administered on 01/31/17 09:03; Admin Dose 1 TAB; Start 01/28/17 at 21:00 Sodium Phosphate (Neutra-Phos) 250 mg BID GTB Last administered on 01/31/17 09 :03; Admin Dose 250 MG; Start 01/28/17 at 21:00 Apixaban (Eliquis) 5 mg BID GTB Last administered on 01/31/17 09:03; Admin Dose 5 MG; Start 01/28/17 at 21:00 Chlorhexidine Gluconate (Peridex) 15 ml Q12 MT Last administered on 01/31/17 09:28; Admin Dose 15 ML; Start 01/28/17 at 21:00 Digoxin (Digoxin) 0.125 mg DAILY@13 GTB Last administered on 01/31/17 13:23; Admin Dose 0.125 MG; Start 01/29/17 at 13:00 Diltiazem HCl (Cardizem) 60 mg Q6 GTB Last administered on 01/31/17 06:27; Admin Dose 60 MG; Start 01/28/17 at 18:07 Docusate Sodium (Colace Liquid Cup) 100 mg BID GTB Last administered on 09:02; Admin Dose 100 MG; Start 01/28/17 at 21:00 Doxazosin Mesylate (Cardura) 2 mg DAILY@21 GTB Last administered on 01/30/17 20:27; Admin Dose 2 MG; Start 01/28/17 at 21:00 Famotidine (Pepcid) 20 mg DAILY GTB Last administered on 01/31/17 09:03; Admin Dose 20 MG; Start 01/29/17 at 09:00 Carbidopa/Levodopa (Sinemet (25/ 100)) 2 tab 07,10,13,16,19 GTB Last administered on 01/31/17 16:03; Admin Dose 2 TAB; Start 01/28/17 at 19:00 Scopolamine 1 patch 1 patch Q72H TRANSDERM Last administered on 01/29/17 09:28 ; Admin Dose 1 PATCH; Start 01/29/17 at 09:00 Ferric Sodium Gluconate Complex/ Sodium Chloride (Ferrlecit/NS) 110 ml @ 100 mls/hr Q24H IVPB Last administered on 01/31/17 12:16; Admin Dose 100 MLS/HR; Start 01/30/17 at 11:00; Stop 02/01/17 at 12:05 Ferrous Sulfate (Feosol Liquid Cup) 300 mg BID GTB ; Start 02/02/17 at 09:00 RICKY MEDINA MD Jan 31, 2017 16:11
--- NOTE | 2017-01-31 18:05 | CONS ---
Date/Time of Note Date/Time of Note DATE: 01/31/17 TIME: 18:03 Consult Date/Type/Reason Admit Date/Time Jan 28, 2017 at 16:20 Initial Consult Date Type of Consultation: Pulmonary Subjective Patient had increasing respiratory distress today. Trach Was removed he was placed on cool aerosol appears more comfortable. Objective Vital Signs Date Time Temp Pulse Resp B/P Pulse Ox O2 Delivery O2 Flow Rate FiO2 01/31/17 17:49 5.0 28 01/31/17 14:00 97.6 103 20 84/57 98 01/31/17 13:18 Aerosol Intake and Output 01/30/17 01/30/17 01/31/17 15:00 23:00 07:00 Intake Total 110 ml 1440 ml 700 ml Output Total 400 ml 700 ml Balance 110 ml 1040 ml 0 ml Exam GENERAL: VITAL SIGNS: per chart elderly gentleman on cool aerosol via tracheostomy NECK: Supple. No JVD or lymphadenopathy. CARDIAC EXAM: S1, S2. No added sounds or murmurs. CHEST: clear bilaterally, No added sounds, rales or wheezes ABDOMEN: Soft, nontender. No guarding or rebound. EXTREMITIES: No cyanosis, clubbing or edema. NEUROLOGIC: Generalized weakness. No focal deficits. Results/Medications Result Diagram: 01/29/1761001/30/17 0633 Medications Current Medications Carbidopa/Levodopa (Sinemet (25/ 100)) 2 tab QHS GTB Last administered on 20:25; Admin Dose 2 TAB; Start 01/28/17 at 21:00 Lorazepam (Ativan) 2 mg Q12H PRN GTB ANXIETY Last administered on 01/29/17 21: 03; Admin Dose 2 MG; Start 01/28/17 at 18:00 Prednisone (Prednisone) 20 mg DAILY GTB Last administered on 01/31/17 09:03; Admin Dose 20 MG; Start 01/29/17 at 09:00 Morphine Sulfate (morphine) 2 mg Q4H PRN SC PAIN; Start 01/28/17 at 18:30 Nystatin (Nystatin Powder) 1 applic BID TOP Last administered on 01/31/17 09: 28; Admin Dose 1 APPLIC; Start 01/28/17 at 21:00 Psyllium Hydrophilic Mucilloid (Metamucil) 2 pkt DAILY GTB Last administered on 01/31/17 09:03; Admin Dose 2 PKT; Start 01/29/17 at 09:00 Rasagiline (Azilect) 1 mg DAILY GTB Last administered on 01/31/17 09:03; Admin Dose 1 MG; Start 01/29/17 at 09:00 Senna (Senokot) 1 tab BID GTB Last administered on 01/31/17 09:03; Admin Dose 1 TAB; Start 01/28/17 at 21:00 Sodium Phosphate (Neutra-Phos) 250 mg BID GTB Last administered on 01/31/17 09 :03; Admin Dose 250 MG; Start 01/28/17 at 21:00 Apixaban (Eliquis) 5 mg BID GTB Last administered on 01/31/17 09:03; Admin Dose 5 MG; Start 01/28/17 at 21:00 Chlorhexidine Gluconate (Peridex) 15 ml Q12 MT Last administered on 01/31/17 09:28; Admin Dose 15 ML; Start 01/28/17 at 21:00 Digoxin (Digoxin) 0.125 mg DAILY@13 GTB Last administered on 01/31/17 13:23; Admin Dose 0.125 MG; Start 01/29/17 at 13:00 Diltiazem HCl (Cardizem) 60 mg Q6 GTB Last administered on 01/31/17 06:27; Admin Dose 60 MG; Start 01/28/17 at 18:07 Docusate Sodium (Colace Liquid Cup) 100 mg BID GTB Last administered on 09:02; Admin Dose 100 MG; Start 01/28/17 at 21:00 Doxazosin Mesylate (Cardura) 2 mg DAILY@21 GTB Last administered on 01/30/17 20:27; Admin Dose 2 MG; Start 01/28/17 at 21:00 Famotidine (Pepcid) 20 mg DAILY GTB Last administered on 01/31/17 09:03; Admin Dose 20 MG; Start 01/29/17 at 09:00 Carbidopa/Levodopa (Sinemet (25/ 100)) 2 tab 07,10,13,16,19 GTB Last administered on 01/31/17 16:03; Admin Dose 2 TAB; Start 01/28/17 at 19:00 Scopolamine 1 patch 1 patch Q72H TRANSDERM Last administered on 01/29/17 09:28 ; Admin Dose 1 PATCH; Start 01/29/17 at 09:00 Ferric Sodium Gluconate Complex/ Sodium Chloride (Ferrlecit/NS) 110 ml @ 100 mls/hr Q24H IVPB Last administered on 01/31/17 12:16; Admin Dose 100 MLS/HR; Start 01/30/17 at 11:00; Stop 02/01/17 at 12:05 Ferrous Sulfate (Feosol Liquid Cup) 300 mg BID GTB ; Start 02/02/17 at 09:00 Assessment/Plan Chief Complaint/Hosp Course IMPRESSION: 1. Status post hypoxemic respiratory failure now with tracheostomy capped. 2. Recent perforated diverticulitis. 3. History of underlying Parkinson's disease. PLAN: 1. Continue PT, OT. 2. Continue cardiac recommendations. 3. Continue anticoagulation for atrial fibrillation. 4. Continue full aerosol hold off trach capping for now. Problems: DOLORES DE LA CRUZ MD, [facility] Jan 31, 2017 18:05
[2017-01-31 19:58] VITALS: BP 100/60; RESP 20
[2017-01-31] MEDS: DOXAZOSIN 2 MG TAB GTB SCH (20:39)
[2017-02-01] MEDS: DILTIAZEM 60 MG TAB GTB SCH ×3 (00:14→11:37)
[2017-02-01] MEDS: LORAZEPAM 1 MG TAB GTB PRN (00:14)
[2017-02-01] MEDS: ACETYLCYSTEINE 20% 4 ML VIAL NEB SCH ×4 (01:22→19:40)
[2017-02-01] MEDS: ALBUTEROL/IPRATROPIUM (NEB) 3 ML AMP HHN SCH ×4 (01:22→19:40)
[2017-02-01 02:00] VITALS: BP 107/65; RESP 20
[2017-02-01 08:00] VITALS: BP 94/50; PULSE 80; RESP 20
--- NOTE | 2017-02-01 08:04 | CONS ---
Date/Time of Note Date/Time of Note DATE: 02/01/17 TIME: 08:04 Consult Date/Type/Reason Admit Date/Time Jan 28, 2017 at 16:20 Type of Consultation: Pulmonary Subjective SOb with activities Objective max/dep Vital Signs Date Time Temp Pulse Resp B/P Pulse Ox O2 Delivery O2 Flow Rate FiO2 02/01/17 07:38 87 19 98 T Tube 5.0 28 02/01/17 02:00 98.7 107/65 Intake and Output 01/31/17 01/31/17 02/01/17 15:00 23:00 07:00 Intake Total 110 ml Output Total 300 ml 700 ml Balance 110 ml -300 ml -700 ml Results/Medications Result Diagram: 01/29/17 0611 01/30/17 0633 Medications Current Medications Carbidopa/Levodopa (Sinemet (25/ 100)) 2 tab QHS GTB Last administered on 20:37; Admin Dose 2 TAB; Start 01/28/17 at 21:00 Lorazepam (Ativan) 2 mg Q12H PRN GTB ANXIETY Last administered on 02/01/17 00: 14; Admin Dose 2 MG; Start 01/28/17 at 18:00 Prednisone (Prednisone) 20 mg DAILY GTB Last administered on 01/31/17 09:03; Admin Dose 20 MG; Start 01/29/17 at 09:00 Morphine Sulfate (morphine) 2 mg Q4H PRN SC PAIN; Start 01/28/17 at 18:30 Nystatin (Nystatin Powder) 1 applic BID TOP Last administered on 01/31/17 20: 40; Admin Dose 1 APPLIC; Start 01/28/17 at 21:00 Psyllium Hydrophilic Mucilloid (Metamucil) 2 pkt DAILY GTB Last administered on 01/31/17 09:03; Admin Dose 2 PKT; Start 01/29/17 at 09:00 Rasagiline (Azilect) 1 mg DAILY GTB Last administered on 01/31/17 09:03; Admin Dose 1 MG; Start 01/29/17 at 09:00 Senna (Senokot) 1 tab BID GTB Last administered on 01/31/17 20:37; Admin Dose 1 TAB; Start 01/28/17 at 21:00 Sodium Phosphate (Neutra-Phos) 250 mg BID GTB Last administered on 01/31/17 20 :37; Admin Dose 250 MG; Start 01/28/17 at 21:00 Apixaban (Eliquis) 5 mg BID GTB Last administered on 01/31/17 20:37; Admin Dose 5 MG; Start 01/28/17 at 21:00 Chlorhexidine Gluconate (Peridex) 15 ml Q12 MT Last administered on 01/31/17 20:39; Admin Dose 15 ML; Start 01/28/17 at 21:00 Digoxin (Digoxin) 0.125 mg DAILY@13 GTB Last administered on 01/31/17 13:23; Admin Dose 0.125 MG; Start 01/29/17 at 13:00 Diltiazem HCl (Cardizem) 60 mg Q6 GTB Last administered on 02/01/17 06:27; Admin Dose 60 MG; Start 01/28/17 at 18:07 Docusate Sodium (Colace Liquid Cup) 100 mg BID GTB Last administered on 20:35; Admin Dose 100 MG; Start 01/28/17 at 21:00 Doxazosin Mesylate (Cardura) 2 mg DAILY@21 GTB Last administered on 01/30/17 20:27; Admin Dose 2 MG; Start 01/28/17 at 21:00 Famotidine (Pepcid) 20 mg DAILY GTB Last administered on 01/31/17 09:03; Admin Dose 20 MG; Start 01/29/17 at 09:00 Carbidopa/Levodopa (Sinemet (25/ 100)) 2 tab 07,10,13,16,19 GTB Last administered on 01/31/17 16:03; Admin Dose 2 TAB; Start 01/28/17 at 19:00 Scopolamine 1 patch 1 patch Q72H TRANSDERM Last administered on 01/29/17 09:28 ; Admin Dose 1 PATCH; Start 01/29/17 at 09:00 Ferric Sodium Gluconate Complex/ Sodium Chloride (Ferrlecit/NS) 110 ml @ 100 mls/hr Q24H IVPB Last administered on 01/31/17 12:16; Admin Dose 100 MLS/HR; Start 01/30/17 at 11:00; Stop 02/01/17 at 12:05 Ferrous Sulfate (Feosol Liquid Cup) 300 mg BID GTB ; Start 02/02/17 at 09:00 Assessment/Plan Additional Assessment/Plan Rehab- Parkinson disease; Debility secondary to perforated diverticulitis and respiratory failure. Activities as tolerated Trach- f/b pulm. - retention, f/b urology Dysphagia with G-tube placement- d/w speech therapy. Possible video soon Hypertension. Peripheral neuropathy. Atrial fibrillation. TIANA SCHAFER MD Feb 01, 2017 08:04
[2017-02-01] MEDS: NYSTATIN 30 GM POWDER BTL TOP SCH ×2 (08:13→20:48)
[2017-02-01] MEDS: DOCUSATE SODIUM 10 MG/ML (10ML CUP) GTB SCH ×2 (08:14→20:48)
[2017-02-01] MEDS: CARBIDOPA/LEVODOPA (25/100) TAB GTB SCH ×6 (08:16→20:56)
[2017-02-01] MEDS: FAMOTIDINE 20 MG TAB GTB SCH (08:16)
[2017-02-01] MEDS: RASAGILINE MESYLATE 1 MG TAB GTB SCH (08:16)
[2017-02-01] MEDS: NEUTRA-PHOS 250 MG PACKET GTB SCH ×2 (08:16→20:48)
[2017-02-01] MEDS: APIXABAN 5 MG TABLET GTB SCH ×2 (08:16→20:56)
[2017-02-01] MEDS: SENNA TAB GTB SCH ×2 (08:16→20:56)
[2017-02-01] MEDS: predniSONE 20 MG TAB GTB SCH (08:16)
[2017-02-01] MEDS: SCOPOLAMINE 1.5 MG PATCH TRANSDERM SCH (08:17)
[2017-02-01] MEDS: CHLORHEXIDINE GLUCONATE 15 ML UD CUP MT SCH ×2 (08:18→20:48)
[2017-02-01] MEDS: PSYLLIUM 28% PACKET GTB SCH (08:18)
[2017-02-01 11:00] VITALS: BP 85/53; PULSE 98; RESP 21
[2017-02-01 11:46] VITALS: BP 99/56; PULSE 101; RESP 20
[2017-02-01] MEDS: SOD FERRIC GLUC COMPLX 125 MG in SOD CHLORIDE 0.9% 100 ML IVPB SCH (11:49)
[2017-02-01] MEDS: DIGOXIN 0.125 MG TAB GTB SCH (12:00)
--- NOTE | 2017-02-01 15:33 | CONS ---
Date/Time of Note Date/Time of Note DATE: 02/01/17 TIME: 15:32 Assessment/Plan Assessment/Plan Additional Assessment/Plan 1. Pulmonary debility. -Continue with rehabilitation. -Continue with Pulmonary toileting. Follow-up with pulmonary recommendations. 2. Status post respiratory failure, requiring insertion of tracheostomy and is now capped. Stable saturation on room air. -Pulmonary standpoint,Continue tracheostomy capping and will reassess for decannulation. 3. Dysphagia, requiring G-tube. -Continue tube feeding as tolerated-speech therapy following for video swallow eval. -Continue with local G-tube care. 4. History of perforated diverticulitis. -Status post explore lap with partial colectomy and colostomy placement. -Colostomy care per nursing/ostomy nurse 5. Atrial fibrillation. -On Cardizem/Dig and Eliquis for anticoagulation 6.Essential HTN, now with borderline hypotension. -f/u cards recs on BP management and parameters for holding Cardizem. 7. BPH with urinary retention. -On doxazosin. As per urology, will attempt Cano removal sometimes later and if patient cannot void, plan is in and out catheterization. 8. Reported Hypothyroidism. Not on treatment. - Obtain a TSH/T4 level and treat as indicated. 9. Parkinson's disease. -Continue home medications -Supportive care 10. Peripheral neuropathy. -Continue home medications 11. Iron deficiency Anemia. -IV ironx3 doses followed by oral replacement.H&H stable. 12. Hyponatremia, likely dilutional.Improving.No neurological deficit. -Free water restriction 1L/day. -F/u osmolalities, f/u labs Prophylaxis: Eliquis/Pepcid. Consultation Date/Type/Reason Admit Date/Time Jan 28, 2017 at 16:20 Type of Consultation: Internal medicine 24 HR Interval Summary Free Text/Dictation feeling very weak, s/p ST evaluation did not cooperate with it Exam/Review of Systems Vital Signs Vitals Vital Signs Date Time Temp Pulse Resp B/P Pulse Ox O2 Delivery O2 Flow Rate FiO2 02/01/17 11:46 101 20 99/56 97 Room Air 02/01/17 08:00 98.7 02/01/17 07:38 5.0 28 Intake and Output 01/31/17 01/31/17 02/01/17 15:00 23:00 07:00 Intake Total 110 ml 1040 ml Output Total 700 ml 700 ml Balance 110 ml 340 ml -700 ml Exam General: chronically ill, no acute distress HEENT: ANNALISE, EOMI Cardiac: S1, S2 RRR, no murmur Pulmonary: With capped tracheostomy. Mild wheezing bilateral upper lobes on expiration. Normal respiratory effort. Extremities: No cyanosis, clubbing, or edema. Pulses [2+] bilaterally Neurologic: A & O x 3, no focal deficits Results Result Diagram: 01/29/17 0611 01/30/17 0633 Results 24 hrs Laboratory Tests Test 02/01/17 10:35 Lab Scanned Report REFERENCE LAB Medications Medications Current Medications Carbidopa/Levodopa (Sinemet (25/ 100)) 2 tab QHS GTB Last administered on 20:37; Admin Dose 2 TAB; Start 01/28/17 at 21:00 Lorazepam (Ativan) 2 mg Q12H PRN GTB ANXIETY Last administered on 02/01/17 00: 14; Admin Dose 2 MG; Start 01/28/17 at 18:00 Prednisone (Prednisone) 20 mg DAILY GTB Last administered on 02/01/17 08:16; Admin Dose 20 MG; Start 01/29/17 at 09:00 Morphine Sulfate (morphine) 2 mg Q4H PRN SC PAIN; Start 01/28/17 at 18:30 Nystatin (Nystatin Powder) 1 applic BID TOP Last administered on 02/01/17 08: 13; Admin Dose 1 APPLIC; Start 01/28/17 at 21:00 Psyllium Hydrophilic Mucilloid (Metamucil) 2 pkt DAILY GTB Last administered on 02/01/17 08:18; Admin Dose 2 PKT; Start 01/29/17 at 09:00 Rasagiline (Azilect) 1 mg DAILY GTB Last administered on 02/01/17 08:16; Admin Dose 1 MG; Start 01/29/17 at 09:00 Senna (Senokot) 1 tab BID GTB Last administered on 02/01/17 08:16; Admin Dose 1 TAB; Start 01/28/17 at 21:00 Sodium Phosphate (Neutra-Phos) 250 mg BID GTB Last administered on 02/01/17 08 :16; Admin Dose 250 MG; Start 10/3/17 at 21:00 Apixaban (Eliquis) 5 mg BID GTB Last administered on 02/01/17 08:16; Admin Dose 5 MG; Start 01/28/17 at 21:00 Chlorhexidine Gluconate (Peridex) 15 ml Q12 MT Last administered on 01/31/17 20:39; Admin Dose 15 ML; Start 01/28/17 at 21:00 Digoxin (Digoxin) 0.125 mg DAILY@13 GTB Last administered on 02/01/17 12:00; Admin Dose 0.125 MG; Start 01/29/17 at 13:00 Diltiazem HCl (Cardizem) 60 mg Q6 GTB Last administered on 02/01/17 06:27; Admin Dose 60 MG; Start 01/28/17 at 18:07 Docusate Sodium (Colace Liquid Cup) 100 mg BID GTB Last administered on 08:14; Admin Dose 100 MG; Start 01/28/17 at 21:00 Doxazosin Mesylate (Cardura) 2 mg DAILY@21 GTB Last administered on 01/30/17 20:27; Admin Dose 2 MG; Start 01/28/17 at 21:00 Famotidine (Pepcid) 20 mg DAILY GTB Last administered on 02/01/17 08:16; Admin Dose 20 MG; Start 01/29/17 at 09:00 Carbidopa/Levodopa (Sinemet (25/ 100)) 2 tab 07,10,13,16,19 GTB Last administered on 02/01/17 12:00; Admin Dose 2 TAB; Start 01/28/17 at 19:00 Scopolamine (Transderm-Scop) 1 patch Q72H TRANSDERM Last administered on 08:17; Admin Dose 1 PATCH; Start 01/29/17 at 09:00 Ferrous Sulfate (Feosol Liquid Cup) 300 mg BID GTB ; Start 02/02/17 at 09:00 RICKY MEDINA MD Feb 01, 2017 15:33
[2017-02-01] MEDS ORDERED: MIDODRINE 5 MG TAB GTB ONE (16:00)
[2017-02-01] MEDS: DILTIAZEM 30 MG TAB GTB SCH (18:33)
[2017-02-01 19:15] VITALS: BP 91/54; PULSE 88; RESP 16
[2017-02-01] MEDS: DOXAZOSIN 1 MG TAB GTB SCH (20:55)
[2017-02-01] MEDS ORDERED: SOD CHLORIDE 0.9% 500 ML IV ONE (21:30)
[2017-02-02] MEDS: ALBUTEROL/IPRATROPIUM (NEB) 3 ML AMP HHN SCH ×4 (01:52→20:36)
[2017-02-02] MEDS: ACETYLCYSTEINE 20% 4 ML VIAL NEB SCH ×4 (01:53→20:36)
[2017-02-02 02:00] VITALS: BP 93/56; PULSE 62; RESP 16
[2017-02-02] MEDS: DILTIAZEM 30 MG TAB GTB SCH ×4 (06:00→18:34)
[2017-02-02] MEDS: CARBIDOPA/LEVODOPA (25/100) TAB GTB SCH ×6 (06:06→21:14)
[2017-02-02 08:18] VITALS: BP 118/70; PULSE 71; RESP 18
[2017-02-02] MEDS: SENNA TAB GTB SCH ×2 (09:11→21:14)
[2017-02-02] MEDS: predniSONE 20 MG TAB GTB SCH (09:11)
[2017-02-02] MEDS: FAMOTIDINE 20 MG TAB GTB SCH (09:11)
[2017-02-02] MEDS: APIXABAN 5 MG TABLET GTB SCH ×2 (09:11→21:14)
[2017-02-02] MEDS: NEUTRA-PHOS 250 MG PACKET GTB SCH ×2 (09:11→21:13)
[2017-02-02] MEDS: FERROUS SULFATE 60 MG/ML 5ML CUP GTB SCH ×2 (09:11→21:13)
[2017-02-02] MEDS: RASAGILINE MESYLATE 1 MG TAB GTB SCH (09:11)
[2017-02-02] MEDS: DOCUSATE SODIUM 10 MG/ML (10ML CUP) GTB SCH ×2 (09:11→21:13)
[2017-02-02] MEDS: CHLORHEXIDINE GLUCONATE 15 ML UD CUP MT SCH ×2 (09:11→21:15)
[2017-02-02] MEDS: PSYLLIUM 28% PACKET GTB SCH (09:17)
[2017-02-02] MEDS: NYSTATIN 30 GM POWDER BTL TOP SCH ×2 (09:18→21:14)
[2017-02-02 14:00] VITALS: BP 114/58; PULSE 98; RESP 18
[2017-02-02] MEDS: DIGOXIN 0.125 MG TAB GTB SCH (14:04)
--- NOTE | 2017-02-02 15:44 | CONS ---
Date/Time of Note Date/Time of Note DATE: 02/02/17 TIME: 15:42 Consult Date/Type/Reason Admit Date/Time Jan 28, 2017 at 16:20 Initial Consult Date Type of Consultation: Pulm Subjective No events. Objective Vital Signs Date Time Temp Pulse Resp B/P Pulse Ox O2 Delivery O2 Flow Rate FiO2 02/02/17 14:00 98.7 98 18 114/58 98 T Tube Trach Collar 02/02/17 13:35 5.0 28 Intake and Output 02/01/17 02/01/17 02/02/17 15:00 23:00 07:00 Intake Total 110 ml 1650 ml Output Total 1200 ml Balance 110 ml 450 ml Exam NECK: Supple. No JVD or lymphadenopathy. CARDIAC EXAM: S1, S2. No added sounds or murmurs. CHEST: clear bilaterally, No added sounds, rales or wheezes ABDOMEN: Soft, nontender. No guarding or rebound. EXTREMITIES: No cyanosis, clubbing or edema. NEUROLOGIC: Generalized weakness. No focal deficits. Results/Medications Result Diagram: 01/29/1761001/30/17 0633 Medications Current Medications Carbidopa/Levodopa (Sinemet (25/ 100)) 2 tab QHS GTB Last administered on 20:56; Admin Dose 2 TAB; Start 01/28/17 at 21:00 Prednisone (Prednisone) 20 mg DAILY GTB Last administered on 02/02/17 09:11; Admin Dose 20 MG; Start 01/29/17 at 09:00 Nystatin (Nystatin Powder) 1 applic BID TOP Last administered on 02/02/17 09: 18; Admin Dose 1 APPLIC; Start 01/28/17 at 21:00 Psyllium Hydrophilic Mucilloid (Metamucil) 2 pkt DAILY GTB Last administered on 02/02/17 09:17; Admin Dose 2 PKT; Start 01/29/17 at 09:00 Rasagiline (Azilect) 1 mg DAILY GTB Last administered on 02/02/17 09:11; Admin Dose 1 MG; Start 01/29/17 at 09:00 Senna (Senokot) 1 tab BID GTB Last administered on 02/02/17 09:11; Admin Dose 1 TAB; Start 01/28/17 at 21:00 Sodium Phosphate (Neutra-Phos) 250 mg BID GTB Last administered on 02/02/17 09 :11; Admin Dose 250 MG; Start 01/28/17 at 21:00 Apixaban (Eliquis) 5 mg BID GTB Last administered on 02/02/17 09:11; Admin Dose 5 MG; Start 01/28/17 at 21:00 Chlorhexidine Gluconate (Peridex) 15 ml Q12 MT Last administered on 02/02/17 09:11; Admin Dose 15 ML; Start 01/28/17 at 21:00 Digoxin (Digoxin) 0.125 mg DAILY@13 GTB Last administered on 02/02/17 14:04; Admin Dose 0.125 MG; Start 01/29/17 at 13:00 Docusate Sodium (Colace Liquid Cup) 100 mg BID GTB Last administered on 09:11; Admin Dose 100 MG; Start 01/28/17 at 21:00 Famotidine (Pepcid) 20 mg DAILY GTB Last administered on 02/02/17 09:11; Admin Dose 20 MG; Start 01/29/17 at 09:00 Carbidopa/Levodopa (Sinemet (25/ 100)) 2 tab 07,10,13,16,19 GTB Last administered on 02/02/17 14:04; Admin Dose 2 TAB; Start 01/28/17 at 19:00 Ferrous Sulfate (Feosol Liquid Cup) 300 mg BID GTB Last administered on 09:11; Admin Dose 300 MG; Start 02/02/17 at 09:00 Doxazosin Mesylate (Cardura) 1 mg DAILY@21 GTB ; Start 02/01/17 at 21:00 Diltiazem HCl (Cardizem) 30 mg Q6 GTB Last administered on 02/01/17 18:33; Admin Dose 30 MG; Start 02/01/17 at 18:00 Assessment/Plan Additional Assessment/Plan IMPRESSION: 1. Status post hypoxemic respiratory failure -- trach is not capped 2. Recent perforated diverticulitis. 3. History of underlying Parkinson's disease. PLAN: 1. Continue PT, OT. 2. Continue cardiac recommendations. 3. Continue anticoagulation for atrial fibrillation. 4. Will resume ST with PMV and capping as tolerated GERARDO TIJERINA MD Feb 02, 2017 15:44
--- NOTE | 2017-02-02 17:32 | CONS ---
Date/Time of Note Date/Time of Note DATE: 02/02/17 TIME: 17:29 Assessment/Plan Assessment/Plan Additional Assessment/Plan 1. Pulmonary debility. -Continue with rehabilitation. -Continue with Pulmonary toileting. Follow-up with pulmonary recommendations. pt stil having lot of secretions, his scopolamine patch has been discontinued yesterday will repeat CXR with labs in AM 2. Status post respiratory failure, requiring insertion of tracheostomy and is now capped. Stable saturation on room air. -Pulmonary standpoint,Continue tracheostomy capping and will reassess for decannulation. 3. Dysphagia, requiring G-tube. -Continue tube feeding as tolerated-speech therapy following for video swallow eval. -Continue with local G-tube care. 4. History of perforated diverticulitis. -Status post explore lap with partial colectomy and colostomy placement. -Colostomy care per nursing/ostomy nurse 5. Atrial fibrillation. -On Cardizem/Dig and Eliquis for anticoagulation 6.Essential HTN, now with borderline hypotension. - Yesterday pt was given midodrine for BP support, his cardizem has been reduced to 30mg PO Q 6 hr, BP today stable, will continue cardizem and Digoxin with holding parameters 7. BPH with urinary retention. -On doxazosin. As per urology, will attempt Cnao removal sometimes later and if patient cannot void, plan is in and out catheterization. 8. Reported Hypothyroidism. Not on treatment. - Obtain a TSH/T4 level and treat as indicated. 9. Parkinson's disease. -Continue home medications -Supportive care 10. Peripheral neuropathy. -Continue home medications 11. Iron deficiency Anemia. -IV ironx3 doses followed by oral replacement.H&H stable. 12. Hyponatremia, likely dilutional.Improving.No neurological deficit. Prophylaxis: Eliquis/Pepcid. Consultation Date/Type/Reason Admit Date/Time Jan 28, 2017 at 16:20 Type of Consultation: INTERNAL MEDICINE 24 HR Interval Summary Free Text/Dictation doing ok, BP stable, pt still having Difficutly in breathing and lot of secretions Exam/Review of Systems Vital Signs Vitals Vital Signs Date Time Temp Pulse Resp B/P Pulse Ox O2 Delivery O2 Flow Rate FiO2 02/02/17 14:00 98.7 98 18 114/58 98 T Tube Trach Collar 02/02/17 13:35 5.0 28 Intake and Output 10/7/17 10/7/17 10/8/17 15:00 23:00 07:00 Intake Total 110 ml 1650 ml Output Total 1200 ml Balance 110 ml 450 ml Exam General: chronically ill, no acute distress HEENT: ANNALISE, EOMI Cardiac: S1, S2 RRR, no murmur Pulmonary: With capped tracheostomy. Mild wheezing bilateral upper lobes on expiration. Normal respiratory effort. Extremities: No cyanosis, clubbing, or edema. Pulses [2+] bilaterally Neurologic: A & O x 3, no focal deficits Results Result Diagram: 01/29/1711 01/30/17632 Medications Medications Current Medications Carbidopa/Levodopa (Sinemet (25/ 100)) 2 tab QHS GTB Last administered on 20:56; Admin Dose 2 TAB; Start 01/28/17 at 21:00 Prednisone (Prednisone) 20 mg DAILY GTB Last administered on 02/02/17 09:11; Admin Dose 20 MG; Start 01/29/17 at 09:00 Nystatin (Nystatin Powder) 1 applic BID TOP Last administered on 02/02/17 09: 18; Admin Dose 1 APPLIC; Start 01/28/17 at 21:00 Psyllium Hydrophilic Mucilloid (Metamucil) 2 pkt DAILY GTB Last administered on 02/02/17:17; Admin Dose 2 PKT; Start 01/29/17 at 09:00 Rasagiline (Azilect) 1 mg DAILY GTB Last administered on 02/02/17 09:11; Admin Dose 1 MG; Start 01/29/17 at 09:00 Senna (Senokot) 1 tab BID GTB Last administered on 02/02/17 09:11; Admin Dose 1 TAB; Start 01/28/17 at 21:00 Sodium Phosphate (Neutra-Phos) 250 mg BID GTB Last administered on 02/02/17 09 :11; Admin Dose 250 MG; Start 01/28/17 at 21:00 Apixaban (Eliquis) 5 mg BID GTB Last administered on 02/02/17 09:11; Admin Dose 5 MG; Start 01/28/17 at 21:00 Chlorhexidine Gluconate (Peridex) 15 ml Q12 MT Last administered on 02/02/17 09:11; Admin Dose 15 ML; Start 01/28/17 at 21:00 Digoxin (Digoxin) 0.125 mg DAILY@13 GTB Last administered on 02/02/17 14:04; Admin Dose 0.125 MG; Start 01/29/17 at 13:00 Docusate Sodium (Colace Liquid Cup) 100 mg BID GTB Last administered on 09:11; Admin Dose 100 MG; Start 01/28/17 at 21:00 Famotidine (Pepcid) 20 mg DAILY GTB Last administered on 02/02/17 09:11; Admin Dose 20 MG; Start 01/29/17 at 09:00 Carbidopa/Levodopa (Sinemet (25/ 100)) 2 tab 07,10,13,16,19 GTB Last administered on 02/02/17 16:38; Admin Dose 2 TAB; Start 01/28/17 at 19:00 Ferrous Sulfate (Feosol Liquid Cup) 300 mg BID GTB Last administered on 09:11; Admin Dose 300 MG; Start 02/02/17 at 09:00 Doxazosin Mesylate (Cardura) 1 mg DAILY@21 GTB ; Start 02/01/17 at 21:00 Diltiazem HCl (Cardizem) 30 mg Q6 GTB Last administered on 02/01/17 18:33; Admin Dose 30 MG; Start 02/01/17 at 18:00 RICKY MEDINA MD Feb 02, 2017 17:32
[2017-02-02 19:39] VITALS: BP 95/57; RESP 18
[2017-02-02] MEDS: DOXAZOSIN 1 MG TAB GTB SCH (21:00)
[2017-02-03 00:01] VITALS: BP 91/51; PULSE 95
[2017-02-03 02:15] VITALS: BP 106/56; RESP 18
[2017-02-03] MEDS: ACETYLCYSTEINE 20% 4 ML VIAL NEB SCH ×4 (02:31→19:44)
[2017-02-03] MEDS: ALBUTEROL/IPRATROPIUM (NEB) 3 ML AMP HHN SCH ×4 (02:31→19:44)
[2017-02-03 06:00] VITALS: BP 98/60; PULSE 84
[2017-02-03] MEDS: DILTIAZEM 30 MG TAB GTB SCH ×4 (06:00→17:21)
[2017-02-03] MEDS: CARBIDOPA/LEVODOPA (25/100) TAB GTB SCH ×6 (06:15→21:06)
[2017-02-03 07:05] LABS: BASOPHILS % 0.1 % (0.0-2.0); EOSINOPHILS # 0.1 10^3/ul (0.0-0.5); EOSINOPHILS % 1.2 % (0.0-7.0); HEMATOCRIT 24.9 % (42.0-52.0); HEMOGLOBIN 7.4 g/dl (14.0-18.0); LYMPHOCYTES # 1.1 10^3/ul (0.8-2.9); LYMPHOCYTES % 14.2 % (15.0-51.0); MEAN CORPUSCULAR HEMOGLOBIN 28.6 pg (29.0-33.0); MEAN CORPUSCULAR HGB CONC 29.7 g/dl (32.0-37.0); MEAN CORPUSCULAR VOLUME 96.1 fl (82.0-101.0); MEAN PLATELET VOLUME 10.8 fl (7.4-10.4); MONOCYTE # 0.7 10^3/ul (0.3-0.9); MONOCYTES % 9.4 % (0.0-11.0); NEUTROPHIL # 5.7 10^3/ul (1.6-7.5); NEUTROPHILS % 73.7 % (39.0-77.0); NUCLEATED RED BLOOD CELLS% 0.5 /100WBC (0.0-0.0); PLATELET COUNT 236 10^3/UL (140-415); RED BLOOD COUNT 2.59 10^6/ul (4.70-6.10); RED CELL DISTRIBUTION WIDTH 20.2 % (11.5-14.5); WHITE BLOOD COUNT 7.7 10^3/ul (4.8-10.8)
[2017-02-03 07:26] LABS: INR 1.38; PT RATIO 1.3
[2017-02-03 07:27] LABS: ALBUMIN 2.2 g/dl (3.3-4.9); ALBUMIN/GLOBULIN RATIO 1.04; BILIRUBIN,INDIRECT 0.1 mg/dl (0-1.1); BILIRUBIN,TOTAL 0.1 mg/dl (0.2-1.3); CREATININE 0.72 mg/dl (0.61-1.24); PARTIAL THROMBOPLASTIN TIME 37.1 Sec (25.0-35.0); POTASSIUM 3.8 mmol/L (3.5-5.1); TOTAL PROTEIN 4.3 g/dl (6.1-8.1)
[2017-02-03 07:30] VITALS: BP 101/64; RESP 20
[2017-02-03 07:35] LABS: MAGNESIUM 2.1 mg/dl (1.7-2.5)
[2017-02-03] MEDS: SENNA TAB GTB SCH ×2 (09:02→21:06)
[2017-02-03] MEDS: FERROUS SULFATE 60 MG/ML 5ML CUP GTB SCH ×2 (09:02→21:06)
[2017-02-03] MEDS: DOCUSATE SODIUM 10 MG/ML (10ML CUP) GTB SCH ×2 (09:02→21:06)
[2017-02-03] MEDS: PSYLLIUM 28% PACKET GTB SCH (09:02)
[2017-02-03] MEDS: CHLORHEXIDINE GLUCONATE 15 ML UD CUP MT SCH ×2 (09:02→21:06)
[2017-02-03] MEDS: FAMOTIDINE 20 MG TAB GTB SCH (09:02)
[2017-02-03] MEDS: APIXABAN 5 MG TABLET GTB SCH ×2 (09:03→21:06)
[2017-02-03] MEDS: predniSONE 20 MG TAB GTB SCH (09:03)
[2017-02-03] MEDS: NYSTATIN 30 GM POWDER BTL TOP SCH ×2 (09:03→21:03)
[2017-02-03] MEDS: RASAGILINE MESYLATE 1 MG TAB GTB SCH (09:03)
[2017-02-03] MEDS: NEUTRA-PHOS 250 MG PACKET GTB SCH ×2 (09:03→21:06)
--- NOTE | 2017-02-03 11:04 | RADRPT ---
PROCEDURE: XR Chest. CLINICAL INDICATION: Shortness of breath. TECHNIQUE: Single frontal view. COMPARISON: 01/23/2017. FINDINGS: The tracheostomy tube is in satisfactory position. There is mild right basilar atelectasis and eleva tion of the right hemidiaphragm, unchanged. The lungs are otherwise clear. The heart size is normal. There is calcification in the aorta consistent with atherosclerosis. There is no pleural effusion. There is no pneumothorax. IMPRESSION: 1. No change from 01/23/2017. RPTAT: QQ .Ramírez Real MD, MD Date Time Electronically viewed and signed by .Ramírez Real MD, MD on 02/03/2017 11:04 .R/
--- NOTE | 2017-02-03 11:53 | CONS ---
Date/Time of Note Date/Time of Note DATE: 02/03/17 TIME: 11:53 Consult Date/Type/Reason Admit Date/Time Jan 28, 2017 at 16:20 Type of Consultation: INTERNAL MEDICINE Objective Vital Signs Date Time Temp Pulse Resp B/P Pulse Ox O2 Delivery O2 Flow Rate FiO2 02/03/17 08:20 76 20 99 28 02/03/17 08:20 5.0 02/03/17 07:30 98.7 101/64 02/02/17 14:00 T Tube Trach Collar Intake and Output 02/02/17 02/02/17 02/03/17 15:00 23:00 07:00 Intake Total 1040 ml 900 ml Output Total 400 ml 1400 ml Balance 640 ml -500 ml INTERDISCIPLINARY TEAM CONFERENCE BLADDER-maldonado SKIN- blanchable heals, sacral redness OT- DRESSING-max BATHING-max TOILETING-max PT- BED MOBILITY-max TRANSFERS-dep W.C. MOBILITY-ua SPEECH- COGNITION-sba DYPHAGIA-Gtube feeds A/P- Interdisciplinary team conference held today. Please see interdisciplinary sheet. Working toward d.cMeredith on 02/13 with post discharge follow up of physical therapy, occupational therapy., RN and speech therapy. Results/Medications Result Diagram: 02/03/17 0630 02/03/17 0630 Results 24 hrs Laboratory Tests Test 02/03/17 06:30 02/03/17 06:31 White Blood Count 7.7 Red Blood Count 2.59 #L Hemoglobin 7.4 #L Hematocrit 24.9 L Mean Corpuscular Volume 96.1 Mean Corpuscular Hemoglobin 28.6 L Mean Corpuscular Hemoglobin Concent 29.7 L Red Cell Distribution Width 20.2 H Platelet Count 236 Mean Platelet Volume 10.8 H Neutrophils % 73.7 Lymphocytes % 14.2 L Monocytes % 9.4 Eosinophils % 1.2 Basophils % 0.1 Nucleated Red Blood Cells % 0.5 H Neutrophils # 5.7 Lymphocytes # 1.1 Monocytes # 0.7 Eosinophils # 0.1 Basophils # 0.0 Nucleated Red Blood Cells # 0.0 Prothrombin Time 17.0 #H Prothrombin Time Ratio 1.3 INR International Normalized Ratio 1.38 Activated Partial Thromboplast Time 37.1 H Sodium Level 134 L Potassium Level 3.8 Chloride Level 103 Carbon Dioxide Level 29 Anion Gap 6 L Blood Urea Nitrogen 23 H Creatinine 0.72 Glucose Level 88 Calcium Level 7.0 L Total Bilirubin 0.1 L Direct Bilirubin 0.00 Indirect Bilirubin 0.1 Aspartate Amino Transf (AST/SGOT) 11 L Alanine Aminotransferase (ALT/SGPT) 27 Alkaline Phosphatase 47 Total Protein 4.3 L Albumin 2.2 L Globulin 2.10 Albumin/Globulin Ratio 1.04 Phosphorus Level 3.0 Magnesium Level 2.1 Medications Current Medications Carbidopa/Levodopa (Sinemet (25/ 100)) 2 tab QHS GTB Last administered on 21:14; Admin Dose 2 TAB; Start 01/28/17 at 21:00 Prednisone (Prednisone) 20 mg DAILY GTB Last administered on 02/03/17 09:03; Admin Dose 20 MG; Start 01/29/17 at 09:00 Nystatin (Nystatin Powder) 1 applic BID TOP Last administered on 02/03/17 09: 03; Admin Dose 1 APPLIC; Start 01/28/17 at 21:00 Psyllium Hydrophilic Mucilloid (Metamucil) 2 pkt DAILY GTB Last administered on 02/03/17 09:02; Admin Dose 2 PKT; Start 01/29/17 at 09:00 Rasagiline (Azilect) 1 mg DAILY GTB Last administered on 02/03/17 09:03; Admin Dose 1 MG; Start 01/29/17 at 09:00 Senna (Senokot) 1 tab BID GTB Last administered on 02/03/17 09:02; Admin Dose 1 TAB; Start 01/28/17 at 21:00 Sodium Phosphate (Neutra-Phos) 250 mg BID GTB Last administered on 02/03/17 09 :03; Admin Dose 250 MG; Start 01/28/17 at 21:00 Apixaban (Eliquis) 5 mg BID GTB Last administered on 02/03/17 09:03; Admin Dose 5 MG; Start 01/28/17 at 21:00 Chlorhexidine Gluconate (Peridex) 15 ml Q12 MT Last administered on 02/03/17 09:02; Admin Dose 15 ML; Start 01/28/17 at 21:00 Digoxin (Digoxin) 0.125 mg DAILY@13 GTB Last administered on 02/02/17 14:04; Admin Dose 0.125 MG; Start 01/29/17 at 13:00 Docusate Sodium (Colace Liquid Cup) 100 mg BID GTB Last administered on 09:02; Admin Dose 100 MG; Start 01/28/17 at 21:00 Famotidine (Pepcid) 20 mg DAILY GTB Last administered on 02/03/17 09:02; Admin Dose 20 MG; Start 01/29/17 at 09:00 Carbidopa/Levodopa (Sinemet (25/ 100)) 2 tab 07,10,13,16,19 GTB Last administered on 02/03/17 09:03; Admin Dose 2 TAB; Start 01/28/17 at 19:00 Ferrous Sulfate (Feosol Liquid Cup) 300 mg BID GTB Last administered on 09:02; Admin Dose 300 MG; Start 02/02/17 at 09:00 Doxazosin Mesylate (Cardura) 1 mg DAILY@21 GTB ; Start 02/01/17 at 21:00 Diltiazem HCl (Cardizem) 30 mg Q6 GTB Last administered on 02/02/17 18:34; Admin Dose 30 MG; Start 02/01/17 at 18:00 TIANA SCHAFER MD Feb 03, 2017 11:53
--- NOTE | 2017-02-03 13:30 | CONS ---
Date/Time of Note Date/Time of Note DATE: 02/03/17 TIME: 13:21 Assessment/Plan Assessment/Plan Chief Complaint/Hosp Course 81-year-old male with history of vent dependent respiratory failure, who was transferred from [facility] to NHU for pulmonary debility. 1. Pulmonary debility. -Continue with rehabilitation. -Continue with Pulmonary toileting. Follow-up with pulmonary recommendations. 2. Status post respiratory failure, requiring insertion of tracheostomy and is now capped. Stable saturation on room air. -Per,Pulmonary standpoint,Continue tracheostomy capping and will reassess for decannulation. 3. Dysphagia, requiring G-tube. -Continue tube feeding as tolerated-speech therapy following for indication for video swallow eval. -Continue with local G-tube care. -Diet eval for bolus feeding. 4. History of perforated diverticulitis. -Status post explore lap with partial colectomy and colostomy placement. -Colostomy care per nursing/ostomy nurse 5. Atrial fibrillation. -On Cardizem/Dig and Eliquis for anticoagulation 6.Essential HTN, now with borderline hypotension. -f/u cards recs on BP management and parameters for holding Cardizem. 7. BPH with urinary retention. -On doxazosin. As per urology, will attempt Cano removal sometimes later and if patient cannot void, plan is in and out catheterization. -Urology reeval requested. 8. Hypothyroidism. - Start Synthroid 25 mcg AC breakfast. -Repeat levels in 6 weeks 9. Parkinson's disease. -Continue home medications -Supportive care 10. Peripheral neuropathy. -Continue home medications 11. Iron deficiency Anemia.Stable. -Continue oral replacement.H&H stable. 12. Hyponatremia, likely dilutional. Stable. -Free water restriction 1L/day. Prophylaxis: Eliquis/Pepcid. Patient was seen in collaboration with Dr. Stacy. Problems: Consultation Date/Type/Reason Admit Date/Time Jan 28, 2017 at 16:20 Initial Consult Date Type of Consultation: INTERNAL MEDICINE 24 HR Interval Summary Free Text/Dictation Doing well. Tube feed on hold at night 2/2 cough. Exam/Review of Systems Vital Signs Vitals Vital Signs Date Time Temp Pulse Resp B/P Pulse Ox O2 Delivery O2 Flow Rate FiO2 02/03/17 08:20 76 20 99 28 02/03/17 08:20 5.0 02/03/17 07:30 98.7 101/64 02/02/17 14:00 T Tube Trach Collar Intake and Output 02/02/17 02/02/17 02/03/17 15:00 23:00 07:00 Intake Total 1040 ml 900 ml Output Total 400 ml 1400 ml Balance 640 ml -500 ml Exam General: Elderly, chronically ill looking male, not in any acute distress . HEENT: Normocephalic, Atraumatic, No laceration or hematoma; Eyes: PEERL, Conjunctiva clear, Anicteric sclera Neck: Supple without any lymphadenopathy, nontender, no JVD, no carotid bruits, trachea midline, no thyromegaly Cardiac: S1, S2 auscultated, regular rhythm and rate, no mumurs or gallop Pulmonary: With capped tracheostomy. Mild wheezing bilateral upper lobes on expiration. Normal respiratory effort. GI: With G-tube, mild redness around the site. Soft, non tender, non- distended, no masses, no rebound tenderness or guarding. Bowel sounds active on all four quadrants Genitourinary: Deferred Extremities: No cyanosis, clubbing, or edema. Pulses [2+] bilaterally. Full ROM on all four extremities. No focal weakness appreciated. Neurologic: Alert to person, place, time, and situation. Affect appropriate, intact sensation. Skin: Clean,dry, and intact. No ecchymosis, no rashes, or lesions Results Result Diagram: 02/03/17 0630 02/03/17 0630 Results 24 hrs Laboratory Tests Test 02/03/17 06:30 02/03/17 06:31 White Blood Count 7.7 Red Blood Count 2.59 #L Hemoglobin 7.4 #L Hematocrit 24.9 L Mean Corpuscular Volume 96.1 Mean Corpuscular Hemoglobin 28.6 L Mean Corpuscular Hemoglobin Concent 29.7 L Red Cell Distribution Width 20.2 H Platelet Count 236 Mean Platelet Volume 10.8 H Neutrophils % 73.7 Lymphocytes % 14.2 L Monocytes % 9.4 Eosinophils % 1.2 Basophils % 0.1 Nucleated Red Blood Cells % 0.5 H Neutrophils # 5.7 Lymphocytes # 1.1 Monocytes # 0.7 Eosinophils # 0.1 Basophils # 0.0 Nucleated Red Blood Cells # 0.0 Prothrombin Time 17.0 #H Prothrombin Time Ratio 1.3 INR International Normalized Ratio 1.38 Activated Partial Thromboplast Time 37.1 H Sodium Level 134 L Potassium Level 3.8 Chloride Level 103 Carbon Dioxide Level 29 Anion Gap 6 L Blood Urea Nitrogen 23 H Creatinine 0.72 Glucose Level 88 Calcium Level 7.0 L Total Bilirubin 0.1 L Direct Bilirubin 0.00 Indirect Bilirubin 0.1 Aspartate Amino Transf (AST/SGOT) 11 L Alanine Aminotransferase (ALT/SGPT) 27 Alkaline Phosphatase 47 Total Protein 4.3 L Albumin 2.2 L Globulin 2.10 Albumin/Globulin Ratio 1.04 Phosphorus Level 3.0 Magnesium Level 2.1 Medications Medications Current Medications Carbidopa/Levodopa (Sinemet (25/ 100)) 2 tab QHS GTB Last administered on 21:14; Admin Dose 2 TAB; Start 01/28/17 at 21:00 Prednisone (Prednisone) 20 mg DAILY GTB Last administered on 02/03/17 09:03; Admin Dose 20 MG; Start 01/29/17 at 09:00 Nystatin (Nystatin Powder) 1 applic BID TOP Last administered on 02/03/17 09: 03; Admin Dose 1 APPLIC; Start 01/28/17 at 21:00 Psyllium Hydrophilic Mucilloid (Metamucil) 2 pkt DAILY GTB Last administered on 02/03/17 09:02; Admin Dose 2 PKT; Start 01/29/17 at 09:00 Rasagiline (Azilect) 1 mg DAILY GTB Last administered on 02/03/17 09:03; Admin Dose 1 MG; Start 01/29/17 at 09:00 Senna (Senokot) 1 tab BID GTB Last administered on 02/03/17 09:02; Admin Dose 1 TAB; Start 01/28/17 at 21:00 Sodium Phosphate (Neutra-Phos) 250 mg BID GTB Last administered on 02/03/17 09 :03; Admin Dose 250 MG; Start 01/28/17 at 21:00 Apixaban (Eliquis) 5 mg BID GTB Last administered on 02/03/17 09:03; Admin Dose 5 MG; Start 01/28/17 at 21:00 Chlorhexidine Gluconate (Peridex) 15 ml Q12 MT Last administered on 02/03/17 09:02; Admin Dose 15 ML; Start 01/28/17 at 21:00 Digoxin (Digoxin) 0.125 mg DAILY@13 GTB Last administered on 02/02/17 14:04; Admin Dose 0.125 MG; Start 01/29/17 at 13:00 Docusate Sodium (Colace Liquid Cup) 100 mg BID GTB Last administered on 09:02; Admin Dose 100 MG; Start 01/28/17 at 21:00 Famotidine (Pepcid) 20 mg DAILY GTB Last administered on 02/03/17 09:02; Admin Dose 20 MG; Start 01/29/17 at 09:00 Carbidopa/Levodopa (Sinemet (25/ 100)) 2 tab 07,10,13,16,19 GTB Last administered on 02/03/17 09:03; Admin Dose 2 TAB; Start 01/28/17 at 19:00 Ferrous Sulfate (Feosol Liquid Cup) 300 mg BID GTB Last administered on 09:02; Admin Dose 300 MG; Start 02/02/17 at 09:00 Doxazosin Mesylate (Cardura) 1 mg DAILY@21 GTB ; Start 02/01/17 at 21:00 Diltiazem HCl (Cardizem) 30 mg Q6 GTB Last administered on 02/02/17 18:34; Admin Dose 30 MG; Start 02/01/17 at 18:00 ALEX BURR NP Feb 03, 2017 13:30
[2017-02-03] MEDS: DIGOXIN 0.125 MG TAB GTB SCH (13:42)
[2017-02-03 14:00] VITALS: BP 119/55; RESP 20
--- NOTE | 2017-02-03 14:14 | CONS ---
Date/Time of Note Date/Time of Note DATE: 02/03/17 TIME: 14:12 Assessment/Plan Assessment/Plan Additional Assessment/Plan Chest x-ray was reviewed today which is showing elevation of right hemidiaphragm. Assessment and recommendations; 1. Patient admitted with perforated diverticulitis status post abdominal surgery, status post tracheostomy with significantly improved clinical status. 2. Anemia. 3. History of cardiac arrhythmia. 4. 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 5. Generalized deconditioning. Continue current treatment. Continue rehab. Consultation Date/Type/Reason Admit Date/Time Jan 28, 2017 at 16:20 Initial Consult Date Type of Consultation: INTERNAL MEDICINE 24 HR Interval Summary Free Text/Dictation Patient's condition is stable. Remains awake alert. Denies any shortness of breath. General exam; elderly male, awake and alert. Currently in no distress. Maintaining adequate O2 saturation on tracheal T piece. Exam/Review of Systems Vital Signs Vitals Vital Signs Date Time Temp Pulse Resp B/P Pulse Ox O2 Delivery O2 Flow Rate FiO2 02/03/17 13:45 80 20 98 28 02/03/17 08:20 5.0 02/03/17 07:30 98.7 101/64 02/02/17 14:00 T Tube Trach Collar Intake and Output 02/02/17 02/02/17 02/03/17 15:00 23:00 07:00 Intake Total 1040 ml 900 ml Output Total 400 ml 1400 ml Balance 640 ml -500 ml Exam HEENT exam; supple neck, no JVD. No lymphadenopathy. Midline trachea. No thyromegaly. Patient has a multiple carious teeth. Tracheostomy in place. Insertion site is clean. Attached to T-piece. Chest exam; diminished breath sounds bilaterally. S1-S2 audible, no murmurs. Regular rhythm. Abdomen exam; soft, protuberant. Nontender. Bowel sounds audible. Extremity exam; no peripheral edema. [employer] exam; patient is awake alert still exhibiting significant muscular weakness. Results Result Diagram: 02/03/17 0630 02/03/17 0630 Results 24 hrs Laboratory Tests Test 02/03/17 06:30 02/03/17 06:31 White Blood Count 7.7 Red Blood Count 2.59 #L Hemoglobin 7.4 #L Hematocrit 24.9 L Mean Corpuscular Volume 96.1 Mean Corpuscular Hemoglobin 28.6 L Mean Corpuscular Hemoglobin Concent 29.7 L Red Cell Distribution Width 20.2 H Platelet Count 236 Mean Platelet Volume 10.8 H Neutrophils % 73.7 Lymphocytes % 14.2 L Monocytes % 9.4 Eosinophils % 1.2 Basophils % 0.1 Nucleated Red Blood Cells % 0.5 H Neutrophils # 5.7 Lymphocytes # 1.1 Monocytes # 0.7 Eosinophils # 0.1 Basophils # 0.0 Nucleated Red Blood Cells # 0.0 Prothrombin Time 17.0 #H Prothrombin Time Ratio 1.3 INR International Normalized Ratio 1.38 Activated Partial Thromboplast Time 37.1 H Sodium Level 134 L Potassium Level 3.8 Chloride Level 103 Carbon Dioxide Level 29 Anion Gap 6 L Blood Urea Nitrogen 23 H Creatinine 0.72 Glucose Level 88 Calcium Level 7.0 L Total Bilirubin 0.1 L Direct Bilirubin 0.00 Indirect Bilirubin 0.1 Aspartate Amino Transf (AST/SGOT) 11 L Alanine Aminotransferase (ALT/SGPT) 27 Alkaline Phosphatase 47 Total Protein 4.3 L Albumin 2.2 L Globulin 2.10 Albumin/Globulin Ratio 1.04 Phosphorus Level 3.0 Magnesium Level 2.1 Medications Medications Current Medications Carbidopa/Levodopa (Sinemet (25/ 100)) 2 tab QHS GTB Last administered on 21:14; Admin Dose 2 TAB; Start 01/28/17 at 21:00 Prednisone (Prednisone) 20 mg DAILY GTB Last administered on 02/03/17 09:03; Admin Dose 20 MG; Start 01/29/17 at 09:00 Nystatin (Nystatin Powder) 1 applic BID TOP Last administered on 02/03/17 09: 03; Admin Dose 1 APPLIC; Start 01/28/17 at 21:00 Psyllium Hydrophilic Mucilloid (Metamucil) 2 pkt DAILY GTB Last administered on 02/03/17 09:02; Admin Dose 2 PKT; Start 01/29/17 at 09:00 Rasagiline (Azilect) 1 mg DAILY GTB Last administered on 02/03/17 09:03; Admin Dose 1 MG; Start 01/29/17 at 09:00 Senna (Senokot) 1 tab BID GTB Last administered on 02/03/17 09:02; Admin Dose 1 TAB; Start 01/28/17 at 21:00 Sodium Phosphate (Neutra-Phos) 250 mg BID GTB Last administered on 02/03/17 09 :03; Admin Dose 250 MG; Start 01/28/17 at 21:00 Apixaban (Eliquis) 5 mg BID GTB Last administered on 02/03/17 09:03; Admin Dose 5 MG; Start 01/28/17 at 21:00 Chlorhexidine Gluconate (Peridex) 15 ml Q12 MT Last administered on 02/03/17 09:02; Admin Dose 15 ML; Start 01/28/17 at 21:00 Digoxin (Digoxin) 0.125 mg DAILY@13 GTB Last administered on 02/03/17 13:42; Admin Dose 0.125 MG; Start 01/29/17 at 13:00 Docusate Sodium (Colace Liquid Cup) 100 mg BID GTB Last administered on 09:02; Admin Dose 100 MG; Start 01/28/17 at 21:00 Famotidine (Pepcid) 20 mg DAILY GTB Last administered on 02/03/17 09:02; Admin Dose 20 MG; Start 01/29/17 at 09:00 Carbidopa/Levodopa (Sinemet (25/ 100)) 2 tab 07,10,13,16,19 GTB Last administered on 02/03/17 13:42; Admin Dose 2 TAB; Start 01/28/17 at 19:00 Ferrous Sulfate (Feosol Liquid Cup) 300 mg BID GTB Last administered on 09:02; Admin Dose 300 MG; Start 02/02/17 at 09:00 Doxazosin Mesylate (Cardura) 1 mg DAILY@21 GTB ; Start 02/01/17 at 21:00 Diltiazem HCl (Cardizem) 30 mg Q6 GTB Last administered on 02/03/17 13:42; Admin Dose 30 MG; Start 02/01/17 at 18:00 BESSIE VASQUEZ Feb 03, 2017 14:14
[2017-02-03 20:00] VITALS: BP 99/56; RESP 18
--- NOTE | 2017-02-03 20:02 | PN ---
Date/Time of Note Date/Time of Note DATE: 02/03/17 TIME: 19:52 Assessment/Plan VTE Prophylaxis VTE Prophylaxis Intervention: LMWH Lines/Catheters IV Catheter Type (from [facility]): Saline Lock Urinary Cath still in place: Yes Reason Cath still needed: urinary retention Assessment/Plan Chief Complaint/Hosp Course 81-year-old male with a history of diverticulitis pelvic abscess status post colon resection and colostomy. Patient had also respiratory failure and is vent dependent, has a tracheostomy and G-tube. He had urinary retention and prior attempts to discontinue the Cano catheter and see if he can urinate on his own were not successful . The patient has low blood pressure and could not tolerate 4mg of doxazosin so he was placed on 1 mg of doxazosin daily. Now that he is in the rehab and he is able to use his upper extremities very well we will try to discontinue the Cano catheter and see if he does void and check his residual. Problems: Subjective 24 Hr Interval Summary Constitutional: no complaints Eyes: no complaints ENT: no complaints Respiratory: other (Patient has a tracheostomy and is connected to a T-piece) Cardiovascular: No chest pain Gastrointestinal: no complaints, other (History of diverticulitis and pelvic abscess, has a G-tube and a colostomy) Genitourinary: other (Urinary retention, patient has an indwelling Cano catheter, prior attempts to discontinue the Cano catheter and see if he can void were not successful) Musculoskeletal: no complaints Skin: no complaints Neurologic: other (History of Parkinson disease) Endocrine: no complaints Lymphatic: no complaints Exam/Review of Systems Vital Signs Vitals Vital Signs Date Time Temp Pulse Resp B/P Pulse Ox O2 Delivery O2 Flow Rate FiO2 02/03/17 19:45 98 5.0 28 02/03/17 19:45 69 20 02/03/17 14:00 98.6 119/55 02/02/17 14:00 T Tube Trach Collar Intake and Output 02/02/17 02/02/17 02/03/17 15:00 23:00 07:00 Intake Total 1040 ml 900 ml Output Total 400 ml 1400 ml Balance 640 ml -500 ml Exam Constitutional: alert Psych: no complaints Head: normocephalic Eyes: nl conjunctiva Neck: other (Tracheostomy midline), supple Respiratory: normal air movement Cardiovascular: No edema Gastrointestinal: other (G-tube and colostomy), soft Genitourinary - Male: other (Cano catheter in place draining clear urine) Extremities: No calf tenderness, No edema Results Result Diagram: 02/03/1730 02/03/17 0630 Results 24 hrs Laboratory Tests Test 02/03/17 06:30 02/03/17 06:31 White Blood Count 7.7 Red Blood Count 2.59 #L Hemoglobin 7.4 #L Hematocrit 24.9 L Mean Corpuscular Volume 96.1 Mean Corpuscular Hemoglobin 28.6 L Mean Corpuscular Hemoglobin Concent 29.7 L Red Cell Distribution Width 20.2 H Platelet Count 236 Mean Platelet Volume 10.8 H Neutrophils % 73.7 Lymphocytes % 14.2 L Monocytes % 9.4 Eosinophils % 1.2 Basophils % 0.1 Nucleated Red Blood Cells % 0.5 H Neutrophils # 5.7 Lymphocytes # 1.1 Monocytes # 0.7 Eosinophils # 0.1 Basophils # 0.0 Nucleated Red Blood Cells # 0.0 Prothrombin Time 17.0 #H Prothrombin Time Ratio 1.3 INR International Normalized Ratio 1.38 Activated Partial Thromboplast Time 37.1 H Sodium Level 134 L Potassium Level 3.8 Chloride Level 103 Carbon Dioxide Level 29 Anion Gap 6 L Blood Urea Nitrogen 23 H Creatinine 0.72 Glucose Level 88 Calcium Level 7.0 L Total Bilirubin 0.1 L Direct Bilirubin 0.00 Indirect Bilirubin 0.1 Aspartate Amino Transf (AST/SGOT) 11 L Alanine Aminotransferase (ALT/SGPT) 27 Alkaline Phosphatase 47 Total Protein 4.3 L Albumin 2.2 L Globulin 2.10 Albumin/Globulin Ratio 1.04 Phosphorus Level 3.0 Magnesium Level 2.1 Medications Medications Current Medications Carbidopa/Levodopa (Sinemet (25/ 100)) 2 tab QHS GTB Last administered on 21:14; Admin Dose 2 TAB; Start 01/28/17 at 21:00 Prednisone (Prednisone) 20 mg DAILY GTB Last administered on 02/03/17 09:03; Admin Dose 20 MG; Start 01/29/17 at 09:00 Nystatin (Nystatin Powder) 1 applic BID TOP Last administered on 02/03/17 09: 03; Admin Dose 1 APPLIC; Start 01/28/17 at 21:00 Psyllium Hydrophilic Mucilloid (Metamucil) 2 pkt DAILY GTB Last administered on 02/03/17 09:02; Admin Dose 2 PKT; Start 01/29/17 at 09:00 Rasagiline (Azilect) 1 mg DAILY GTB Last administered on 02/03/17 09:03; Admin Dose 1 MG; Start 01/29/17 at 09:00 Senna (Senokot) 1 tab BID GTB Last administered on 02/03/17 09:02; Admin Dose 1 TAB; Start 01/28/17 at 21:00 Sodium Phosphate (Neutra-Phos) 250 mg BID GTB Last administered on 02/03/17 09 :03; Admin Dose 250 MG; Start 01/28/17 at 21:00 Apixaban (Eliquis) 5 mg BID GTB Last administered on 02/03/17 09:03; Admin Dose 5 MG; Start 01/28/17 at 21:00 Chlorhexidine Gluconate (Peridex) 15 ml Q12 MT Last administered on 02/03/17 09:02; Admin Dose 15 ML; Start 01/28/17 at 21:00 Digoxin (Digoxin) 0.125 mg DAILY@13 GTB Last administered on 02/03/17 13:42; Admin Dose 0.125 MG; Start 01/29/17 at 13:00 Docusate Sodium (Colace Liquid Cup) 100 mg BID GTB Last administered on 09:02; Admin Dose 100 MG; Start 01/28/17 at 21:00 Famotidine (Pepcid) 20 mg DAILY GTB Last administered on 02/03/17 09:02; Admin Dose 20 MG; Start 01/29/17 at 09:00 Carbidopa/Levodopa (Sinemet (25/ 100)) 2 tab 07,10,13,16,19 GTB Last administered on 02/03/17 18:11; Admin Dose 2 TAB; Start 01/28/17 at 19:00 Ferrous Sulfate (Feosol Liquid Cup) 300 mg BID GTB Last administered on 09:02; Admin Dose 300 MG; Start 02/02/17 at 09:00 Doxazosin Mesylate (Cardura) 1 mg DAILY@21 GTB ; Start 02/01/17 at 21:00 Diltiazem HCl (Cardizem) 30 mg Q6 GTB Last administered on 02/03/17t 13:42; Admin Dose 30 MG; Start 02/01/17 at 18:00 MAGDALENE ANTOINE MD Feb 03, 2017 20:02
[2017-02-03] MEDS: DOXAZOSIN 1 MG TAB GTB SCH (21:07)
[2017-02-04] MEDS: DILTIAZEM 30 MG TAB GTB SCH ×3 (00:41→12:00)
[2017-02-04 02:00] VITALS: BP 103/71; RESP 20
[2017-02-04] MEDS: ALBUTEROL/IPRATROPIUM (NEB) 3 ML AMP HHN SCH ×4 (02:07→21:00)
[2017-02-04] MEDS: ACETYLCYSTEINE 20% 4 ML VIAL NEB SCH ×4 (02:07→21:00)
[2017-02-04] MEDS: CARBIDOPA/LEVODOPA (25/100) TAB GTB SCH ×5 (06:14→20:52)
[2017-02-04 07:00] VITALS: BP 115/51; RESP 18
[2017-02-04 08:00] VITALS: BP 118/69; PULSE 98
--- NOTE | 2017-02-04 09:35 | CONS ---
Date/Time of Note Date/Time of Note DATE: 02/04/17 TIME: 09:34 Consult Date/Type/Reason Admit Date/Time Jan 28, 2017 at 16:20 Type of Consultation: INTERNAL MEDICINE Subjective Family conference held with . Case also d/w IM Objective max/dep Vital Signs Date Time Temp Pulse Resp B/P Pulse Ox O2 Delivery O2 Flow Rate FiO2 02/04/17 08:10 75 20 99 Aerosol 5.0 28 T Tube 02/04/17 07:00 98.2 115/51 Intake and Output 02/03/17 02/03/17 02/04/17 15:00 23:00 07:00 Output Total 520 ml 1500 ml Balance -520 ml -1500 ml Results/Medications Result Diagram: 02/03/1762902/03/17629 Medications Current Medications Carbidopa/Levodopa (Sinemet (25/ 100)) 2 tab QHS GTB Last administered on 21:06; Admin Dose 2 TAB; Start 01/28/17 at 21:00 Prednisone (Prednisone) 20 mg DAILY GTB Last administered on 02/03/17 09:03; Admin Dose 20 MG; Start 01/29/17 at 09:00 Nystatin (Nystatin Powder) 1 applic BID TOP Last administered on 02/03/17 21: 03; Admin Dose 1 APPLIC; Start 01/28/17 at 21:00 Psyllium Hydrophilic Mucilloid (Metamucil) 2 pkt DAILY GTB Last administered on 02/03/17 09:02; Admin Dose 2 PKT; Start 01/29/17 at 09:00 Rasagiline (Azilect) 1 mg DAILY GTB Last administered on 02/03/17 09:03; Admin Dose 1 MG; Start 01/29/17 at 09:00 Senna (Senokot) 1 tab BID GTB Last administered on 02/03/17 21:06; Admin Dose 1 TAB; Start 01/28/17 at 21:00 Sodium Phosphate (Neutra-Phos) 250 mg BID GTB Last administered on 02/03/17 21 :06; Admin Dose 250 MG; Start 01/28/17 at 21:00 Apixaban (Eliquis) 5 mg BID GTB Last administered on 02/03/17 21:06; Admin Dose 5 MG; Start 01/28/17 at 21:00 Chlorhexidine Gluconate (Peridex) 15 ml Q12 MT Last administered on 02/03/17 21:06; Admin Dose 15 ML; Start 01/28/17 at 21:00 Digoxin (Digoxin) 0.125 mg DAILY@13 GTB Last administered on 02/03/17 13:42; Admin Dose 0.125 MG; Start 01/29/17 at 13:00 Docusate Sodium (Colace Liquid Cup) 100 mg BID GTB Last administered on 21:06; Admin Dose 100 MG; Start 01/28/17 at 21:00 Famotidine (Pepcid) 20 mg DAILY GTB Last administered on 02/03/17 09:02; Admin Dose 20 MG; Start 01/29/17 at 09:00 Carbidopa/Levodopa (Sinemet (25/ 100)) 2 tab 07,10,13,16,19 GTB Last administered on 02/04/17 06:14; Admin Dose 2 TAB; Start 01/28/17 at 19:00 Ferrous Sulfate (Feosol Liquid Cup) 300 mg BID GTB Last administered on 21:06; Admin Dose 300 MG; Start 02/02/17 at 09:00 Doxazosin Mesylate (Cardura) 1 mg DAILY@21 GTB Last administered on 02/03/17 21:07; Admin Dose 1 MG; Start 02/01/17 at 21:00 Diltiazem HCl (Cardizem) 30 mg Q6 GTB Last administered on 02/04/17 06:14; Admin Dose 30 MG; Start 02/01/17 at 18:00 Assessment/Plan Additional Assessment/Plan Rehab- Parkinson disease; Debility secondary to perforated diverticulitis and respiratory failure. Activities as tolerated Trach- f/b pulm. Dysphagia with G-tube placement- d/w speech therapy. Possible video soon Hypertension. - neurogenic bladder,BPH, retention requiring I/O cath Peripheral neuropathy. Atrial fibrillation. TIANA SCHAFER MD Feb 04, 2017 09:35
[2017-02-04] MEDS: APIXABAN 5 MG TABLET GTB SCH ×2 (09:52→20:52)
[2017-02-04] MEDS: PSYLLIUM 28% PACKET GTB SCH (09:52)
[2017-02-04] MEDS: RASAGILINE MESYLATE 1 MG TAB GTB SCH (09:52)
[2017-02-04] MEDS: DOCUSATE SODIUM 10 MG/ML (10ML CUP) GTB SCH ×2 (09:52→20:51)
[2017-02-04] MEDS: predniSONE 20 MG TAB GTB SCH (09:52)
[2017-02-04] MEDS: CHLORHEXIDINE GLUCONATE 15 ML UD CUP MT SCH ×2 (09:52→20:51)
[2017-02-04] MEDS: NEUTRA-PHOS 250 MG PACKET GTB SCH ×2 (09:53→20:51)
[2017-02-04] MEDS: SENNA TAB GTB SCH ×2 (09:53→20:52)
[2017-02-04] MEDS: FAMOTIDINE 20 MG TAB GTB SCH (09:53)
[2017-02-04] MEDS: FERROUS SULFATE 60 MG/ML 5ML CUP GTB SCH ×2 (09:53→20:51)
[2017-02-04] MEDS: NYSTATIN 30 GM POWDER BTL TOP SCH ×2 (09:54→20:52)
--- NOTE | 2017-02-04 11:54 | CONS ---
Date/Time of Note Date/Time of Note DATE: 02/04/17 TIME: 11:50 Assessment/Plan Assessment/Plan Chief Complaint/Hosp Course 81-year-old male with history of vent dependent respiratory failure, who was transferred from [facility] to [facility] for pulmonary debility. 1. Pulmonary debility. -Continue with rehabilitation. -Continue with Pulmonary toileting. Follow-up with pulmonary recommendations. 2. Status post respiratory failure, requiring insertion of tracheostomy and is now capped. Stable saturation on room air. -Per,Pulmonary standpoint,Continue tracheostomy capping and will reassess for decannulation. 3. Dysphagia, requiring G-tube. -Continue tube feeding as tolerated-speech therapy following for indication for video swallow eval. -Continue with local G-tube care. -Diet eval for bolus feeding. 4. History of perforated diverticulitis. -Status post explore lap with partial colectomy and colostomy placement. -Colostomy care per nursing/ostomy nurse 5. Atrial fibrillation. -On Cardizem/Dig and Eliquis for anticoagulation 6.Essential HTN, now with borderline hypotension. -f/u cards recs on BP management and parameters for holding Cardizem. 7. BPH with urinary retention. -Neurology evaluation appreciated. Status post Cano removed and patient has not voided 8. Continue doxazosin. 8. Hypothyroidism. - on Synthroid 25 mcg AC breakfast. -Repeat levels in 6 weeks 9. Parkinson's disease. -Continue home medications -Supportive care 10. Peripheral neuropathy. -Continue home medications 11. Iron deficiency Anemia.Stable. -Continue oral replacement.H&H stable. 12. Hyponatremia, likely dilutional. Stable. Prophylaxis: Eliquis/Pepcid. Plan: Patient with no rehab progress secondary to his debility status. At this time, we recommend considering patient to be transferred to long-term care with pulmonary follow-up. Patient was seen in collaboration with Dr. Stacy. Problems: Consultation Date/Type/Reason Admit Date/Time Jan 28, 2017 at 16:20 Type of Consultation: INTERNAL MEDICINE 24 HR Interval Summary Free Text/Dictation Status post Cano removed per urology. Patient has not voided yet. Exam/Review of Systems Vital Signs Vitals Vital Signs Date Time Temp Pulse Resp B/P Pulse Ox O2 Delivery O2 Flow Rate FiO2 10/10/17 08:10 75 20 99 Aerosol 5.0 28 T Tube 02/04/17 07:00 98.2 115/51 Intake and Output 02/03/17 02/03/17 02/04/17 15:00 23:00 07:00 Output Total 520 ml 1500 ml Balance -520 ml -1500 ml Exam General: Elderly, chronically ill looking male, not in any acute distress . HEENT: Normocephalic, Atraumatic, No laceration or hematoma; Eyes: PEERL, Conjunctiva clear, Anicteric sclera Neck: Supple without any lymphadenopathy, nontender, no JVD, no carotid bruits, trachea midline, no thyromegaly Cardiac: S1, S2 auscultated, regular rhythm and rate, no mumurs or gallop Pulmonary: With capped tracheostomy. Mild wheezing bilateral upper lobes on expiration. Normal respiratory effort. GI: With G-tube, mild redness around the site. Soft, non tender, non- distended, no masses, no rebound tenderness or guarding. Bowel sounds active on all four quadrants Genitourinary: Deferred Extremities: No cyanosis, clubbing, or edema. Pulses [2+] bilaterally. Full ROM on all four extremities. No focal weakness appreciated. Neurologic: Alert to person, place, time, and situation. Affect appropriate, intact sensation. Skin: Clean,dry, and intact. No ecchymosis, no rashes, or lesions Results Result Diagram: 02/03/1730 02/03/17 0630 Medications Medications Current Medications Carbidopa/Levodopa (Sinemet (25/ 100)) 2 tab QHS GTB Last administered on 21:06; Admin Dose 2 TAB; Start 01/28/17 at 21:00 Prednisone (Prednisone) 20 mg DAILY GTB Last administered on 02/04/17 09:52; Admin Dose 20 MG; Start 01/29/17 at 09:00 Nystatin (Nystatin Powder) 1 applic BID TOP Last administered on 02/04/17 09: 54; Admin Dose 1 APPLIC; Start 01/28/17 at 21:00 Psyllium Hydrophilic Mucilloid (Metamucil) 2 pkt DAILY GTB Last administered on 02/04/17 09:52; Admin Dose 2 PKT; Start 01/29/17 at 09:00 Rasagiline (Azilect) 1 mg DAILY GTB Last administered on 02/04/17 09:52; Admin Dose 1 MG; Start 01/29/17 at 09:00 Senna (Senokot) 1 tab BID GTB Last administered on 02/04/17 09:53; Admin Dose 1 TAB; Start 01/28/17 at 21:00 Sodium Phosphate (Neutra-Phos) 250 mg BID GTB Last administered on 02/04/17 09:53; Admin Dose 250 MG; Start 01/28/17 at 21:00 Apixaban (Eliquis) 5 mg BID GTB Last administered on 02/04/17 09:52; Admin Dose 5 MG; Start 01/28/17 at 21:00 Chlorhexidine Gluconate (Peridex) 15 ml Q12 MT Last administered on 02/04/17 09:52; Admin Dose 15 ML; Start 01/28/17 at 21:00 Digoxin (Digoxin) 0.125 mg DAILY@13 GTB Last administered on 02/03/17 13:42; Admin Dose 0.125 MG; Start 01/29/17 at 13:00 Docusate Sodium (Colace Liquid Cup) 100 mg BID GTB Last administered on 09:52; Admin Dose 100 MG; Start 01/28/17 at 21:00 Famotidine (Pepcid) 20 mg DAILY GTB Last administered on 02/04/17 09:53; Admin Dose 20 MG; Start 01/29/17 at 09:00 Carbidopa/Levodopa (Sinemet (25/ 100)) 2 tab 07,10,13,16,19 GTB Last administered on 02/04/17 09:52; Admin Dose 2 TAB; Start 01/28/17 at 19:00 Ferrous Sulfate (Feosol Liquid Cup) 300 mg BID GTB Last administered on 09:53; Admin Dose 300 MG; Start 02/02/17 at 09:00 Doxazosin Mesylate (Cardura) 1 mg DAILY@21 GTB Last administered on 02/03/17 21:07; Admin Dose 1 MG; Start 02/01/17 at 21:00 Diltiazem HCl (Cardizem) 30 mg Q6 GTB Last administered on 02/04/17 06:14; Admin Dose 30 MG; Start 02/01/17 at 18:00 ALEX BURR NP Feb 04, 2017 11:54
--- NOTE | 2017-02-04 13:54 | EN ---
Date/Time of Note Date/Time of Note DATE: 02/04/17 TIME: 13:52 Event Note Medicine Medicine Event Note Call received from RN stating that patient's blood pressure dropped to 70s with heart rate 150. Ordered 500 mL fluid bolus. I also requested nursing staff to contact cardiology regarding hypertensive episodes. Discussed with staff to retake blood pressure after fluid bolus and inform us. If indicated, patient will be transferred back to acute side. Case discussed with Dr. Stacy. 2pm: BP improved to 90's after fluid bolus. I spoke with and per recommendation, we are stopping Cardura and reinsert Cano catheter. ALEX BURR NP Feb 04, 2017 13:54
[2017-02-04] MEDS ORDERED: SOD CHLORIDE 0.9% 500 ML IV ONE (14:00)
[2017-02-04] MEDS: DIGOXIN 0.125 MG TAB GTB SCH (14:05)
[2017-02-04] MEDS ORDERED: ACETAMINOPHEN 650MG/20.3ML CUP GTB PRN (16:00)
--- NOTE | 2017-02-04 19:21 | PN ---
Date/Time of Note Date/Time of Note DATE: 02/04/17 TIME: 19:17 Assessment/Plan VTE Prophylaxis VTE Prophylaxis Intervention: LMWH Lines/Catheters IV Catheter Type (from [facility]): Saline Lock Urinary Cath still in place: Yes Reason Cath still needed: urinary retention Assessment/Plan Chief Complaint/Hosp Course 81-year-old male with a history of diverticulitis pelvic abscess status post colon resection and colostomy. Patient had also respiratory failure and is vent dependent, has a tracheostomy and G-tube. He had urinary retention and prior attempts to discontinue the Cano catheter and see if he can urinate on his own were not successful . The patient has low blood pressure and could not tolerate 4mg of doxazosin so he was placed on 1 mg of doxazosin daily. Now that he is in the rehab the Cano catheter was removed and he was placed on 2 mg of doxazosin however his blood pressure was low and we had to stop the doxazosin and insert the Cano catheter again. Problems: Subjective 24 Hr Interval Summary Subjective hx not possible: pt non-verbal Eyes: no complaints Respiratory: no complaints Genitourinary: other (Patient has not been able to urinate and the Cano catheter had to be reinserted) Exam/Review of Systems Vital Signs Vitals Vital Signs Date Time Temp Pulse Resp B/P Pulse Ox O2 Delivery O2 Flow Rate FiO2 02/04/17 16:36 99 16 99 Aerosol 5.0 28 T Tube 02/04/17 08:00 118/69 02/04/17 07:00 98.2 Intake and Output 02/03/17 02/03/17 02/04/17 15:00 23:00 07:00 Output Total 520 ml 1500 ml Balance -520 ml -1500 ml Exam Psych: no complaints Eyes: nl conjunctiva Neck: supple Cardiovascular: No edema Gastrointestinal: soft Genitourinary - Male: other (Cano catheter in place and draining clear urine) Extremities: No calf tenderness, No edema Results Result Diagram: 02/03/1762902/03/17629 Medications Medications Current Medications Carbidopa/Levodopa (Sinemet (25/ 100)) 2 tab QHS GTB Last administered on 21:06; Admin Dose 2 TAB; Start 01/28/17 at 21:00 Prednisone (Prednisone) 20 mg DAILY GTB Last administered on 02/04/17 09:52; Admin Dose 20 MG; Start 01/29/17 at 09:00 Nystatin (Nystatin Powder) 1 applic BID TOP Last administered on 02/04/17 09: 54; Admin Dose 1 APPLIC; Start 01/28/17 at 21:00 Psyllium Hydrophilic Mucilloid (Metamucil) 2 pkt DAILY GTB Last administered on 02/04/17 09:52; Admin Dose 2 PKT; Start 01/29/17 at 09:00 Rasagiline (Azilect) 1 mg DAILY GTB Last administered on 02/04/17 09:52; Admin Dose 1 MG; Start 01/29/17 at 09:00 Senna (Senokot) 1 tab BID GTB Last administered on 02/04/17 09:53; Admin Dose 1 TAB; Start 01/28/17 at 21:00 Sodium Phosphate (Neutra-Phos) 250 mg BID GTB Last administered on 02/04/17 09:53; Admin Dose 250 MG; Start 01/28/17 at 21:00 Apixaban (Eliquis) 5 mg BID GTB Last administered on 02/04/17 09:52; Admin Dose 5 MG; Start 01/28/17 at 21:00 Chlorhexidine Gluconate (Peridex) 15 ml Q12 MT Last administered on 02/04/17 09:52; Admin Dose 15 ML; Start 01/28/17 at 21:00 Digoxin (Digoxin) 0.125 mg DAILY@13 GTB Last administered on 02/04/17 14:05; Admin Dose 0.125 MG; Start 01/29/17 at 13:00 Docusate Sodium (Colace Liquid Cup) 100 mg BID GTB Last administered on 09:52; Admin Dose 100 MG; Start 01/28/17 at 21:00 Famotidine (Pepcid) 20 mg DAILY GTB Last administered on 02/04/17 09:53; Admin Dose 20 MG; Start 01/29/17 at 09:00 Carbidopa/Levodopa (Sinemet (25/ 100)) 2 tab 07,10,13,16,19 GTB Last administered on 02/04/17 17:09; Admin Dose 2 TAB; Start 01/28/17 at 19:00 Ferrous Sulfate (Feosol Liquid Cup) 300 mg BID GTB Last administered on t 09:53; Admin Dose 300 MG; Start 02/02/17 at 09:00 Acetaminophen (Tylenol Liquid) 650 mg Q6 PRN GTB PAIN AND OR ELEVATED TEMP; Start 02/04/17 at 16:00 MAGDALENE ANTOINE MD Feb 04, 2017 19:21
[2017-02-04 20:13] VITALS: BP 99/57; RESP 18
[2017-02-05] MEDS: ACETYLCYSTEINE 20% 4 ML VIAL NEB SCH ×4 (01:46→19:20)
[2017-02-05] MEDS: ALBUTEROL/IPRATROPIUM (NEB) 3 ML AMP HHN SCH ×4 (01:46→19:20)
[2017-02-05] MEDS: CARBIDOPA/LEVODOPA (25/100) TAB GTB SCH ×6 (06:15→21:05)
[2017-02-05 07:00] VITALS: BP 93/68; RESP 18
--- NOTE | 2017-02-05 08:35 | PN ---
Date/Time of Note Date/Time of Note DATE: 02/05/17 TIME: 08:34 Assessment/Plan VTE Prophylaxis VTE Prophylaxis Intervention: SCD's Lines/Catheters IV [facility]from [facility] Saline Lock Urinary Cath still in place: Yes Reason Cath still needed: urinary retention Assessment/Plan Assessment/Plan Atrial fibrillation on A/C Preserved EF Respiratory Failure -s/phypotension -ditiazem dc'd -liberal with fluids -on ac Subjective 24 Hr Interval Summary Free Text/Dictation The patient s/p low bp overnight Exam/Review of Systems Vital Signs Vitals Vital Signs Date Time Temp Pulse Resp B/P Pulse Ox O2 Delivery O2 Flow Rate FiO2 02/05/17 08:21 68 18 100 T Tube 5.0 28 02/04/17 20:13 98.4 99/57 Intake and Output 02/04/17 02/04/17 02/05/17 15:00 23:00 07:00 Intake Total 1350 ml 100 ml 1000 ml Output Total 700 ml 1240 ml Balance 1350 ml -600 ml -240 ml Results Result Diagram: 02/03/17 0630 02/03/17 0630 Medications Medications Current Medications Carbidopa/Levodopa (Sinemet (25/ 100)) 2 tab QHS GTB Last administered on 02/04 20:52; Admin Dose 2 TAB; Start 01/28/17 at 21:00 Prednisone (Prednisone) 20 mg DAILY GTB Last administered on 02/04/17 09:52; Admin Dose 20 MG; Start 01/29/17 at 09:00 Nystatin (Nystatin Powder) 1 applic BID TOP Last administered on 02/04/17 20: 52; Admin Dose 1 APPLIC; Start 01/28/17 at 21:00 Psyllium Hydrophilic Mucilloid (Metamucil) 2 pkt DAILY GTB Last administered on 02/04/17 09:52; Admin Dose 2 PKT; Start 01/29/17 at 09:00 Rasagiline (Azilect) 1 mg DAILY GTB Last administered on 02/04/17 09:52; Admin Dose 1 MG; Start 01/29/17 at 09:00 Senna (Senokot) 1 tab BID GTB Last administered on 02/04/17 20:52; Admin Dose 1 TAB; Start 10/3/17 at 21:00 Sodium Phosphate (Neutra-Phos) 250 mg BID GTB Last administered on 02/04/17 20:51; Admin Dose 250 MG; Start 01/28/17 at 21:00 Apixaban (Eliquis) 5 mg BID GTB Last administered on 02/04/17 20:52; Admin Dose 5 MG; Start 01/28/17 at 21:00 Chlorhexidine Gluconate (Peridex) 15 ml Q12 MT Last administered on 02/04/17 20:51; Admin Dose 15 ML; Start 01/28/17 at 21:00 Digoxin (Digoxin) 0.125 mg DAILY@13 GTB Last administered on 02/04/17 14:05; Admin Dose 0.125 MG; Start 01/29/17 at 13:00 Docusate Sodium (Colace Liquid Cup) 100 mg BID GTB Last administered on 20:51; Admin Dose 100 MG; Start 01/28/17 at 21:00 Famotidine (Pepcid) 20 mg DAILY GTB Last administered on 02/04/17 09:53; Admin Dose 20 MG; Start 01/29/17 at 09:00 Carbidopa/Levodopa (Sinemet (25/ 100)) 2 tab 07,10,13,16,19 GTB Last administered on 02/05/17 06:15; Admin Dose 2 TAB; Start 01/28/17 at 19:00 Ferrous Sulfate (Feosol Liquid Cup) 300 mg BID GTB Last administered on 20:51; Admin Dose 300 MG; Start 02/02/17 at 09:00 Acetaminophen (Tylenol Liquid) 650 mg Q6 PRN GTB PAIN AND OR ELEVATED TEMP; Start 02/04/17 at 16:00 GINO ALICEA MD Feb 05, 2017 08:35
[2017-02-05] MEDS: APIXABAN 5 MG TABLET GTB SCH ×2 (08:54→21:05)
[2017-02-05] MEDS: FAMOTIDINE 20 MG TAB GTB SCH (08:54)
[2017-02-05] MEDS: SENNA TAB GTB SCH ×2 (08:54→21:05)
[2017-02-05] MEDS: NEUTRA-PHOS 250 MG PACKET GTB SCH ×2 (08:54→21:05)
[2017-02-05] MEDS: RASAGILINE MESYLATE 1 MG TAB GTB SCH (08:54)
[2017-02-05] MEDS: predniSONE 20 MG TAB GTB SCH (08:54)
[2017-02-05] MEDS: DOCUSATE SODIUM 10 MG/ML (10ML CUP) GTB SCH ×2 (08:55→21:05)
[2017-02-05] MEDS: FERROUS SULFATE 60 MG/ML 5ML CUP GTB SCH ×2 (08:55→21:05)
[2017-02-05] MEDS: NYSTATIN 30 GM POWDER BTL TOP SCH ×2 (08:55→21:06)
[2017-02-05] MEDS: CHLORHEXIDINE GLUCONATE 15 ML UD CUP MT SCH ×2 (08:55→21:05)
[2017-02-05] MEDS: PSYLLIUM 28% PACKET GTB SCH (08:56)
[2017-02-05 11:43] LABS: BASOPHILS % 0.2 % (0.0-2.0); EOSINOPHILS # 0.1 10^3/ul (0.0-0.5); EOSINOPHILS % 1.2 % (0.0-7.0); HEMATOCRIT 24.5 % (42.0-52.0); HEMOGLOBIN 7.4 g/dl (14.0-18.0); LYMPHOCYTES # 0.8 10^3/ul (0.8-2.9); LYMPHOCYTES % 9.6 % (15.0-51.0); MEAN CORPUSCULAR HEMOGLOBIN 29.6 pg (29.0-33.0); MEAN CORPUSCULAR HGB CONC 30.2 g/dl (32.0-37.0); MEAN PLATELET VOLUME 10.7 fl (7.4-10.4); MONOCYTE # 0.6 10^3/ul (0.3-0.9); MONOCYTES % 7.3 % (0.0-11.0); NEUTROPHIL # 6.8 10^3/ul (1.6-7.5); NEUTROPHILS % 79.5 % (39.0-77.0); NUCLEATED RED BLOOD CELLS # 0.1 10^3/ul (0.0-0.0); NUCLEATED RED BLOOD CELLS% 0.6 /100WBC (0.0-0.0); PLATELET COUNT 251 10^3/UL (140-415); RED CELL DISTRIBUTION WIDTH 20.8 % (11.5-14.5); WHITE BLOOD COUNT 8.6 10^3/ul (4.8-10.8)
--- NOTE | 2017-02-05 11:52 | DS ---
Date/Time of Note Date/Time of Note DATE: 02/05/17 TIME: 11:49 Discharge Summary Admission/Discharge Info Admit Date/Time Jan 28, 2017 at 16:20 Discharge Date/Time Discharge Diagnosis 1. Parkinson disease; Debility secondary to perforated diverticulitis and respiratory failure. 2. Trach. 3. Dysphagia with G-tube placement. 4. Hypertension. 5. BPH. 6. Peripheral neuropathy. 7. Urinary retention. 8. Atrial fibrillation. 9. Impairments in self-care and mobility. Patient Condition: Fair Hospital Course DISCHARGE Patient was admitted for comprehensive interdisciplinary acute rehabilitation. Patient required continued significant assistance during course of rehab. Due to lack of significant progress, patient is being transitioned to a lower level of care. Family conference held with regarding dc planning. Patient cleared for transfer to SNF for continued care and therapies as tolerated. Patient will follow up with PMD upon DC. Primary Care Provider Brian Roberto MD Pending Labs Laboratory Tests Test 02/05/17 11:25 White Blood Count 8.610^3/ul (4.8-10.8) Red Blood Count 2.5010^6/ul (4.70-6.10) Hemoglobin 7.4g/dl (14.0-18.0) Hematocrit 24.5% (42.0-52.0) Mean Corpuscular Volume 98.0fl (82.0-101.0) Mean Corpuscular Hemoglobin 29.6pg (29.0-33.0) Mean Corpuscular Hemoglobin Concent 30.2g/dl (32.0-37.0) Red Cell Distribution Width 20.8% (11.5-14.5) Platelet Count 40753^3/UL (140-415) Mean Platelet Volume 10.7fl (7.4-10.4) Neutrophils % 79.5% (39.0-77.0) Lymphocytes % 9.6% (15.0-51.0) Monocytes % 7.3% (0.0-11.0) Eosinophils % 1.2% (0.0-7.0) Basophils % 0.2% (0.0-2.0) Nucleated Red Blood Cells % 0.6/100WBC (0.0-0.0) Neutrophils # 6.810^3/ul (1.6-7.5) Lymphocytes # 0.810^3/ul (0.8-2.9) Monocytes # 0.610^3/ul (0.3-0.9) Eosinophils # 0.110^3/ul (0.0-0.5) Basophils # 0.010^3/ul (0.0-0.1) Nucleated Red Blood Cells # 0.110^3/ul (0.0-0.0) TIANA SCHAFER MD Feb 05, 2017 11:52
[2017-02-05 12:01] LABS: ALBUMIN 2.2 g/dl (3.3-4.9); ALBUMIN/GLOBULIN RATIO 1.1; CREATININE 0.73 mg/dl (0.61-1.24); POTASSIUM 4.4 mmol/L (3.5-5.1); TOTAL PROTEIN 4.2 g/dl (6.1-8.1)
[2017-02-05] MEDS: SOD CHLORIDE 0.9% 250 ML IV* ONE ×2 (13:32→22:54)
[2017-02-05] MEDS: DIGOXIN 0.125 MG TAB GTB SCH (13:36)
--- NOTE | 2017-02-05 14:16 | CONS ---
Date/Time of Note Date/Time of Note DATE: 02/05/17 TIME: 14:14 Assessment/Plan Assessment/Plan Chief Complaint/Hosp Course 1. Pulmonary debility. Continue rehabilitation. 2. Status post respiratory failure requiring insertion of tracheostomy. S/P tracheostomy capping and reassess for decannulation. 3. Dysphagia. To continue G-tube feedings. 4. History of perforated diverticulitis. Status post exploratory laparotomy with partial colectomy and colostomy placement. 5. Essential hypertension. Now with borderline hypotension. Follow cardiology recommendations. 6. Hypothyroidism. Continue Synthroid. 7. Atrial fibrillation. Continue Cardizem and digoxin. Eliquis for stroke prophylaxis. 8. BPH with urinary retention. Urology following. 9. Parkinson's disease. Continue rasagiline and carbidopa/levodopa. 10. Hyponatremia. Likely dilutional. Free water restriction to 1 L per day. 11. Anemia with underlying iron deficiency. Continue iron supplements. Will transfuse 1 unit of PRBC today since the patient is on anticoagulation. No evidence of any covert bleeding. 12. Fluids, electrolytes, and nutrition. G-tube feedings. 13. Plan. The patient is medically stable to be discharged to a half-way facility after transfusion of 1 unit of PRBC. Case discussed with Dr. Stacy. Problems: Consultation Date/Type/Reason Admit Date/Time Jan 28, 2017 at 16:20 Initial Consult Date Type of Consultation: INTERNAL MEDICINE 24 HR Interval Summary Free Text/Dictation Patient to be discharged to a half-way facility today. Exam/Review of Systems Vital Signs Vitals Vital Signs Date Time Temp Pulse Resp B/P Pulse Ox O2 Delivery O2 Flow Rate FiO2 02/05/17 08:21 68 18 100 T Tube 5.0 28 02/05/17 07:00 98.9 93/68 Intake and Output 02/04/17 02/04/17 02/05/17 15:00 23:00 07:00 Intake Total 1350 ml 100 ml 1000 ml Output Total 700 ml 1240 ml Balance 1350 ml -600 ml -240 ml Exam General: Adequately build 81 year-old male lying in bed in no apparent distress. HEENT: Normocephalic, atraumatic. Eyes: Anicteric sclerae, conjunctivae clear. ENT: Nasal septum midline, oral mucosa moist. Neck supple, no JVD noticed. Respiratory: Bilaterally diminished breath sounds. No use of accessory muscles of respiration. Tracheostomy midline. Cardiovascular: S1, S2 heard. No murmurs or gallops. Abdomen: Soft, nontender, and nondistended. G-tube in place. Left-sided colostomy. Genitourinary: Deferred. Extremities: No cyanosis, no clubbing, no edema. Peripheral pulses palpable. Neurologic: The patient is awake and alert. Results Result Diagram: 02/05/17 1125 02/05/17 1125 Results 24 hrs Laboratory Tests Test 02/05/17 11:25 White Blood Count 8.6 Red Blood Count 2.50 L Hemoglobin 7.4 L Hematocrit 24.5 L Mean Corpuscular Volume 98.0 Mean Corpuscular Hemoglobin 29.6 Mean Corpuscular Hemoglobin Concent 30.2 L Red Cell Distribution Width 20.8 H Platelet Count 251 Mean Platelet Volume 10.7 H Neutrophils % 79.5 H Lymphocytes % 9.6 L Monocytes % 7.3 Eosinophils % 1.2 Basophils % 0.2 Nucleated Red Blood Cells % 0.6 H Neutrophils # 6.8 Lymphocytes # 0.8 Monocytes # 0.6 Eosinophils # 0.1 Basophils # 0.0 Nucleated Red Blood Cells # 0.1 H Sodium Level 132 L Potassium Level 4.4 Chloride Level 101 Carbon Dioxide Level 27 Anion Gap 8 Blood Urea Nitrogen 23 H Creatinine 0.73 Glucose Level 108 Calcium Level 7.0 L Total Bilirubin 0.0 L Direct Bilirubin 0.00 Indirect Bilirubin 0.0 Aspartate Amino Transf (AST/SGOT) 12 L Alanine Aminotransferase (ALT/SGPT) 25 Alkaline Phosphatase 43 Total Protein 4.2 L Albumin 2.2 L Globulin 2.00 Albumin/Globulin Ratio 1.10 Medications Medications Current Medications Carbidopa/Levodopa (Sinemet (25/ 100)) 2 tab QHS GTB Last administered on 02/04 20:52; Admin Dose 2 TAB; Start 01/28/17 at 21:00 Prednisone (Prednisone) 20 mg DAILY GTB Last administered on 02/05/17 08:54; Admin Dose 20 MG; Start 01/29/17 at 09:00 Nystatin (Nystatin Powder) 1 applic BID TOP Last administered on 02/05/17 08: 55; Admin Dose 1 APPLIC; Start 01/28/17 at 21:00 Psyllium Hydrophilic Mucilloid (Metamucil) 2 pkt DAILY GTB Last administered on 02/05/17 08:56; Admin Dose 2 PKT; Start 01/29/17 at 09:00 Rasagiline (Azilect) 1 mg DAILY GTB Last administered on 02/05/17 08:54; Admin Dose 1 MG; Start 01/29/17 at 09:00 Senna (Senokot) 1 tab BID GTB Last administered on 02/05/17 08:54; Admin Dose 1 TAB; Start 01/28/17 at 21:00 Sodium Phosphate (Neutra-Phos) 250 mg BID GTB Last administered on 02/05/17 08:54; Admin Dose 250 MG; Start 01/28/17 at 21:00 Apixaban (Eliquis) 5 mg BID GTB Last administered on 02/05/17 08:54; Admin Dose 5 MG; Start 01/28/17 at 21:00 Chlorhexidine Gluconate (Peridex) 15 ml Q12 MT Last administered on 02/05/17 08:55; Admin Dose 15 ML; Start 01/28/17 at 21:00 Digoxin (Digoxin) 0.125 mg DAILY@13 GTB Last administered on 02/05/17 13:36; Admin Dose 0.125 MG; Start 01/29/17 at 13:00 Docusate Sodium (Colace Liquid Cup) 100 mg BID GTB Last administered on 08:55; Admin Dose 100 MG; Start 01/28/17 at 21:00 Famotidine (Pepcid) 20 mg DAILY GTB Last administered on 02/05/17 08:54; Admin Dose 20 MG; Start 01/29/17 at 09:00 Carbidopa/Levodopa (Sinemet (25/ 100)) 2 tab 07,10,13,16,19 GTB Last administered on 02/05/17 13:36; Admin Dose 2 TAB; Start 01/28/17 at 19:00 Ferrous Sulfate (Feosol Liquid Cup) 300 mg BID GTB Last administered on 08:55; Admin Dose 300 MG; Start 02/02/17 at 09:00 Acetaminophen (Tylenol Liquid) 650 mg Q6 PRN GTB PAIN AND OR ELEVATED TEMP; Start 02/04/17 at 16:00 RAHUL WATT NP Feb 05, 2017 14:16
[2017-02-05 20:22] VITALS: BP 112/68; RESP 18
--- NOTE | 2017-02-05 21:16 | PN ---
Date/Time of Note Date/Time of Note DATE: 02/05/17 TIME: 21:12 Assessment/Plan VTE Prophylaxis VTE Prophylaxis Intervention: SCD's Lines/Catheters IV [facility] Saline Lock Urinary Cath still in place: Yes Reason Cath still needed: urinary retention Assessment/Plan Chief Complaint/Hosp Course 81-year-old male with a history of diverticulitis, pelvic abscess status post colon resection and colostomy. Patient had also respiratory failure and is vent dependent, has a tracheostomy and G-tube. He had urinary retention and prior attempts to discontinue the Cano catheter and see if he can urinate on his own were not successful . The patient has low blood pressure and could not tolerate 4mg of doxazosin so he was placed on 1 mg of doxazosin daily. Now that he is in the rehab the Cano catheter was removed and he was placed on 2 mg of doxazosin however his blood pressure was low and we had to stop the doxazosin and insert the Cano catheter again. Problems: Subjective 24 Hr Interval Summary Constitutional: no complaints Eyes: no complaints ENT: no complaints, other (Has tracheostomy) Respiratory: no complaints Cardiovascular: No chest pain Gastrointestinal: no complaints Genitourinary: other (Has an indwelling Cano catheter) Musculoskeletal: no complaints Skin: no complaints Neurologic: no complaints Exam/Review of Systems Vital Signs Vitals Vital Signs Date Time Temp Pulse Resp B/P Pulse Ox O2 Delivery O2 Flow Rate FiO2 02/05/17 20:22 98.7 112 18 112/68 99 02/05/17 19:20 5.0 28 02/05/17 19:20 Aerosol T Tube Intake and Output 02/04/17 02/04/17 02/05/17 15:00 23:00 07:00 Intake Total 1350 ml 100 ml 1000 ml Output Total 700 ml 1240 ml Balance 1350 ml -600 ml -240 ml Exam Constitutional: alert Psych: no complaints Head: normocephalic Eyes: nl conjunctiva ENMT: nl external ears & nose Neck: supple Respiratory: normal air movement Cardiovascular: No edema Gastrointestinal: soft Genitourinary - Male: nl penis, nl scrotum, other (Has an indwelling Cano catheter), No CVA tenderness Results Result Diagram: 02/05/17 1125 02/05/17 1125 Results 24 hrs Laboratory Tests Test 10/11/17 11:25 White Blood Count 8.6 Red Blood Count 2.50 L Hemoglobin 7.4 L Hematocrit 24.5 L Mean Corpuscular Volume 98.0 Mean Corpuscular Hemoglobin 29.6 Mean Corpuscular Hemoglobin Concent 30.2 L Red Cell Distribution Width 20.8 H Platelet Count 251 Mean Platelet Volume 10.7 H Neutrophils % 79.5 H Lymphocytes % 9.6 L Monocytes % 7.3 Eosinophils % 1.2 Basophils % 0.2 Nucleated Red Blood Cells % 0.6 H Neutrophils # 6.8 Lymphocytes # 0.8 Monocytes # 0.6 Eosinophils # 0.1 Basophils # 0.0 Nucleated Red Blood Cells # 0.1 H Sodium Level 132 L Potassium Level 4.4 Chloride Level 101 Carbon Dioxide Level 27 Anion Gap 8 Blood Urea Nitrogen 23 H Creatinine 0.73 Glucose Level 108 Calcium Level 7.0 L Total Bilirubin 0.0 L Direct Bilirubin 0.00 Indirect Bilirubin 0.0 Aspartate Amino Transf (AST/SGOT) 12 L Alanine Aminotransferase (ALT/SGPT) 25 Alkaline Phosphatase 43 Total Protein 4.2 L Albumin 2.2 L Globulin 2.00 Albumin/Globulin Ratio 1.10 Medications Medications Current Medications Carbidopa/Levodopa (Sinemet (25/ 100)) 2 tab QHS GTB Last administered on 02/05 21:05; Admin Dose 2 TAB; Start 01/28/17 at 21:00 Prednisone (Prednisone) 20 mg DAILY GTB Last administered on 02/05/17 08:54; Admin Dose 20 MG; Start 01/29/17 at 09:00 Nystatin (Nystatin Powder) 1 applic BID TOP Last administered on 02/05/17 21: 06; Admin Dose 1 APPLIC; Start 01/28/17 at 21:00 Psyllium Hydrophilic Mucilloid (Metamucil) 2 pkt DAILY GTB Last administered on 02/05/17 08:56; Admin Dose 2 PKT; Start 01/29/17 at 09:00 Rasagiline (Azilect) 1 mg DAILY GTB Last administered on 02/05/17 08:54; Admin Dose 1 MG; Start 01/29/17 at 09:00 Senna (Senokot) 1 tab BID GTB Last administered on 02/05/17 21:05; Admin Dose 1 TAB; Start 01/28/17 at 21:00 Sodium Phosphate (Neutra-Phos) 250 mg BID GTB Last administered on 02/05/17 21:05; Admin Dose 250 MG; Start 01/28/17 at 21:00 Apixaban (Eliquis) 5 mg BID GTB Last administered on 02/05/17 21:05; Admin Dose 5 MG; Start 01/28/17 at 21:00 Chlorhexidine Gluconate (Peridex) 15 ml Q12 MT Last administered on 02/05/17 21:05; Admin Dose 15 ML; Start 01/28/17 at 21:00 Digoxin (Digoxin) 0.125 mg DAILY@13 GTB Last administered on 02/05/17 13:36; Admin Dose 0.125 MG; Start 01/29/17 at 13:00 Docusate Sodium (Colace Liquid Cup) 100 mg BID GTB Last administered on 21:05; Admin Dose 100 MG; Start 01/28/17 at 21:00 Famotidine (Pepcid) 20 mg DAILY GTB Last administered on 02/05/17 08:54; Admin Dose 20 MG; Start 01/29/17 at 09:00 Carbidopa/Levodopa (Sinemet (25/ 100)) 2 tab 07,10,13,16,19 GTB Last administered on 02/05/17 13:36; Admin Dose 2 TAB; Start 01/28/17 at 19:00 Ferrous Sulfate (Feosol Liquid Cup) 300 mg BID GTB Last administered on 21:05; Admin Dose 300 MG; Start 02/02/17 at 09:00 Acetaminophen (Tylenol Liquid) 650 mg Q6 PRN GTB PAIN AND OR ELEVATED TEMP; Start 02/04/17 at 16:00 MAGDALENE ANTOINE MD Feb 05, 2017 21:16
[2017-02-06 02:00] VITALS: BP 118/65; RESP 18
[2017-02-06] MEDS: ACETYLCYSTEINE 20% 4 ML VIAL NEB SCH ×2 (02:03→07:42)
[2017-02-06] MEDS: ALBUTEROL/IPRATROPIUM (NEB) 3 ML AMP HHN SCH ×2 (02:03→07:42)
[2017-02-06] MEDS: CARBIDOPA/LEVODOPA (25/100) TAB GTB SCH ×3 (06:15→12:43)
[2017-02-06 07:30] VITALS: BP 105/75; RESP 20
--- NOTE | 2017-02-06 08:46 | PN ---
DATE: 02/05/2017 PSYCHOLOGY -- INDIVIDUAL SESSION -- [id number] This is a followup on a patient who was seen last week. The patient is being discharged today. The patient is going to a [facility]. The patient's physical condition is problematic and he has not been recovering. The patient's emotional issues are focused in on his physical issues as he feels very frustrated about all of the time he has been in the hospital and the fact that he is not really getting better. The patient's was present during the session and did acknowledge the fact jimbo t he is extremely frustrated about all his present medical issues. I tried to work with them in reg roxi to helping them see that they have made at least some progress while they have been here in the program but that they need to work continuously to try to get better emotionally and physically. Dictated By: JUAN MIGUEL CHRISTOPHER PHD PEDRO/BERTHA Conf#: [id number] DID#: [id number]
[2017-02-06] MEDS: NYSTATIN 30 GM POWDER BTL TOP SCH (09:35)
[2017-02-06] MEDS: PSYLLIUM 28% PACKET GTB SCH (09:35)
[2017-02-06] MEDS: DOCUSATE SODIUM 10 MG/ML (10ML CUP) GTB SCH (09:36)
[2017-02-06] MEDS: RASAGILINE MESYLATE 1 MG TAB GTB SCH (09:36)
[2017-02-06] MEDS: predniSONE 20 MG TAB GTB SCH (09:36)
[2017-02-06] MEDS: NEUTRA-PHOS 250 MG PACKET GTB SCH (09:36)
[2017-02-06] MEDS: FERROUS SULFATE 60 MG/ML 5ML CUP GTB SCH (09:36)
[2017-02-06] MEDS: CHLORHEXIDINE GLUCONATE 15 ML UD CUP MT SCH (09:36)
[2017-02-06] MEDS: APIXABAN 5 MG TABLET GTB SCH (09:36)
[2017-02-06] MEDS: FAMOTIDINE 20 MG TAB GTB SCH (09:36)
[2017-02-06] MEDS: SENNA TAB GTB SCH (09:36)
[2017-02-06 10:57] LABS: HEMATOCRIT 28.8 % (42.0-52.0)
[2017-02-06] MEDS: DIGOXIN 0.125 MG TAB GTB SCH (12:43)
== END 2017-02-06 13:15 | DRG 948 ==
LOC: VRC 16:20
PROVIDERS: ADMIT Physical Medicine & Rehabilitation; ATTEND Internal Medicine Pulmonary Disease
DX: R53.81 Other malaise (principal); Z93.0 Tracheostomy status; G20 Parkinson's disease; G62.9 Polyneuropathy, unspecified; Z93.1 Gastrostomy status; E87.1 Hypo-osmolality and hyponatremia; R13.10 Dysphagia, unspecified; I48.91 Unspecified atrial fibrillation; I10 Essential (primary) hypertension; R33.9 Retention of urine, unspecified; J98.6 Disorders of diaphragm; E03.9 Hypothyroidism, unspecified; F06.31 Mood disorder due to known physiological condition with depressive features; D50.9 Iron deficiency anemia, unspecified; N40.0 Benign prostatic hyperplasia without lower urinary tract symptoms; Z74.09 Other reduced mobility; Z88.0 Allergy status to penicillin; Z88.8 Allergy status to other drugs, medicaments and biological substances; Z87.891 Personal history of nicotine dependence; Z93.3 Colostomy status; Z86.19 Personal history of other infectious and parasitic diseases; Z87.09 Personal history of other diseases of the respiratory system
CPT/HCPCS: 36430; 71010; 80048; 80053; 80061; 81001; 83036; 83540; 83735; 83930; 83935; 84100; 84300; 84439; 84443; 85014; 85018; 85025; 85610; 85730; 86850; 86900; 86901; 86920; 87081; 87086; 92507; 92523; 92610; 94640; 94664; 97110; 97112; 97163; 97167; 97530; 97535; J2916; J7040; J7512; P9016

== ENCOUNTER → 2017-03-05 | Outpatient (CLI) | payer MEDICARE, BC ==
[~2017-03-05] MED LIST: BARIUM SULFATE 135 ML (E-Z HD) PO ONE
--- NOTE | 2017-03-05 15:07 | RADRPT ---
PROCEDURE: Video-fluoroscopy swallowing study. CLINICAL INDICATION: Dysphagia. TECHNIQUE: Fluoroscopic guided video swallowing study was done in conjunction with the speech ther apist. The study was confined to the oral, pharyngeal, and cervical phases of the swallowing mechani sm. 2.8 minutes of fluoroscopy time was used. 33 series of images were obtained. COMPARISON: No prior study is available for comparison. 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 There is penetration and aspiration during swallowing. IMPRESSION: 1. Abnormal study with penetration and aspiration during swallowing. 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 2. Please refer to the speech therapist's recommendations for future feedings. RPTAT: QQ .Ramírez Real MD, MD Date Time Electronically viewed and signed by .Ramírez Real MD, on 03/05/2017 15:07 .R/
== END | disposition home or self-care (01) ==
LOC: RAD 12:40
PROVIDERS: ATTEND Internal Medicine
DX: G20 Parkinson's disease (principal); R13.10 Dysphagia, unspecified
CPT/HCPCS: 74230; 92611; G8996; G8997; G8998